=== PATIENT | male | born 1950 | race Caucasian/White ===

== ENCOUNTER 2019-06-02 14:13 | Emergency (ER) | payer OTHER ==
[2019-06-02 14:54] LABS: ABS Eosinophils 0.3 10^3/ul (0-0.6); ABS Lymphocytes 1.3 10^3/ul (1.0-4.8); ABS Monocytes 0.6 10^3/ul (0-0.8); ABS Neutrophils 6.5 10^3/ul (1.5-7.7); Eosinophil % 2.9 %; Hematocrit 44 % (42-52); Hemoglobin 14.8 g/dL (14.0-18.0); Lymphocyte % 15.3 %; Mean Corpuscular HGB Conc 34 g/dL (31-36); Mean Corpuscular Hemoglobin 31 pg (27-31); Mean Corpuscular Volume 90 fL (80-94); Mean Platelet Volume 8.9 fL (7.4-10.4); Nucleated Red Blood Cells % 0.5; Platelet Count 201 10^3/uL (150-450); Red Blood Count 4.82 10^6 /uL (4.18-5.48); Red Cell Distribution Width 13 % (10-15); White Blood Count 8.7 10^3/uL (3.5-10.8)
[2019-06-02 15:14] LABS: Troponin I 0.02 ng/mL (<0.03)
[2019-06-02 15:23] LABS: Albumin 3.8 g/dL (3.2-5.2); Calcium 8.9 mg/dL (8.6-10.3); Potassium 3.8 mmol/L (3.5-5.0); Total Bilirubin 0.4 mg/dL (0.2-1.0)
[2019-06-02 15:29] LABS: Albumin/Globulin Ratio 1.5 (1-3); BUN/Creatinine Ratio 18.5 (8-20); EGFR African American 98.4 (>60); EGFR Non-African American 81.3 (>60); Globulin 2.6 g/dL (2-4); Total Protein 6.4 g/dL (6.4-8.9)
--- NOTE | 2019-06-02 17:26 | ED ---
HPI Chest Pain - HPI Summary HPI Summary: This patient is a 68-year-old male from [facility] who presents to the ED with a feeling of chest pressure which she experienced 5 days ago which is now resolved. He had associated shortness of breath as well as fever during this time, both of which have resolved. 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 He states over the past 5 days, he has remained asymptomatic. History includes positive pertinent family history, recent 100% LAD occlusion with stent placement of August 2018, hypertension, hypercholesterolemia, diabetes, obesity. Patient denies any fevers, sweats, chills over the past 5 days and has feeling otherwise well. During his feeling of chest pressure, he states this was non-radiating, was not a pain (but instead a pressure) and denied any LAMB or visual changes associated. Denies any weight gain. Last ECHO done in December of this year. Last stress unknown. Patient takes multiple medications for his HTN, HCL, metform, plavix and aspirin. - History of Current Complaint Chief Complaint: EDChestPainROMI Time Seen by Provider: 06/02/19 14:17 Hx Obtained From: Patient Onset/Duration: Started Hours Ago Timing: Constant Initial Severity: Mild Current Severity: None Pain Intensity: 0 Pain Scale Used: 0-10 Numeric Chest Pain Location: Mid Sternal Chest Pain Radiates: No Character: Other: - pressure Aggravating Factor(s): Nothing Alleviating Factor(s): Nothing Associated Signs and Symptoms: Positive: Negative - Allergy/Home Medications Allergies/Adverse Reactions: Allergies Allergy/AdvReac Type Severity Reaction Status Date / Time No Known Allergies Allergy Verified 06/02/19 15:25 Home Medications: Home Medications Allopurinol TAB* [Zyloprim 300 MG TAB*] 300 mg PO DAILY 06/02/19 [History Confirmed 06/02/19] Aspirin EC TAB* [Ecotrin EC Low Dose 81 MG*] 81 mg PO DAILY 06/02/19 [History Confirmed 06/02/19] Atorvastatin* [Lipitor*] 40 mg PO QPM 06/02/19 [History Confirmed 06/02/19] Clopidogrel TAB* [Plavix TAB*] 75 mg PO DAILY 06/02/19 [History Confirmed ] Furosemide TAB* [Lasix TAB*] 20 mg PO DAILY 06/02/19 [History Confirmed 06/02/19 ] Losartan TAB* [Cozaar TAB*] 100 mg PO DAILY 06/02/19 [History Confirmed 06/02/19 ] Metoprolol Tartrate TAB* [Lopressor TAB*] 25 mg PO BID 06/02/19 [History Confirmed 06/02/19] Omeprazole CAP (NF) [Prilosec CAP* 20 MG] 20 mg PO DAILY 06/02/19 [History Confirmed 06/02/19] Tamsulosin CAP* [Flomax CAP*] 0.4 mg PO DAILY 06/02/19 [History Confirmed ] Triamcinolone NASAL SPRAY* [Nasacort AQ Nasal [place]*] 2 spray BOTH NARES DAILY 06/02/19 [History Confirmed 06/02/19] metFORMIN* [Glucophage 500 MG TAB *] 500 mg PO DAILY 06/02/19 [History Confirmed 06/02/19] PMH/Surg Hx/FS Hx/Imm Hx Previously Healthy: Yes - Immunization History Hx Pertussis Vaccination: No Immunizations Up to Date: Yes Infectious Disease History: No Infectious Disease History: Denies: Traveled Outside the [place] in Last 30 Days - Social History Occupation: Unemployed Lives: Dormitory/Roommates - [employer] Alcohol Use: None Hx Substance Use: No Substance Use Type: Reports: None Smoking Status (MU): Never Smoked Tobacco Review of Systems Negative: Fever, Chills, Fatigue, Skin Diaphoresis Positive: Chest Pain - 5 days ago - since resolved. Negative: Palpitations Negative: Shortness Of Breath, Cough Genitourinary: Negative Positive: no symptoms reported, see HPI Negative: Arthralgia, Myalgia Skin: Negative Neurological: Negative All Other Systems Reviewed And Are Negative: Yes Physical Exam Triage Information Reviewed: Yes Vital Signs On Initial Exam: Initial Vitals Pulse Resp Pulse Ox 64 24 96 06/02/19 14:20 06/02/19 14:20 06/02/19 14:20 Vital Signs Reviewed: Yes Appearance: Positive: Well-Appearing, Well-Nourished Skin: Positive: Warm, Skin Color Reflects Adequate Perfusion Head/Face: Positive: Normal Head/Face Inspection Eyes: Positive: EOMI, RADHA, Conjunctiva Clear Neck: Positive: Supple, No Lymphadenopathy Respiratory/Lung Sounds: Positive: Clear to Auscultation, Breath Sounds Present Cardiovascular: Positive: RRR, Pulses are Symmetrical in both Upper and Lower Extremities. Negative: Leg Edema Left, Leg Edema Right Musculoskeletal: Positive: Normal, Strength/ROM Intact Neurological: Positive: Sensory/Motor Intact, Alert, Oriented to Person Place, Time, Speech Normal Psychiatric: Positive: Normal, Affect/Mood Appropriate AVPU Assessment: Alert Procedures - Sedation Patient Received Moderate/Deep Sedation with Procedure: No Diagnostics - Vital Signs Vital Signs Temp Pulse Resp BP Pulse Ox 06/02/19 15:21 59 21 174/76 96 06/02/19 15:00 61 18 96 06/02/19 14:51 63 34 194/87 96 06/02/19 14:34 98.1 F 63 17 192/98 98 06/02/19 14:21 67 25 192/98 95 06/02/19 14:20 64 24 96 - Laboratory Lab Results: Lab Results 06/02/19 06/02/19 06/02/19 Range/Units 14:32 14:32 14:32 WBC 8.7 (3.5-10.8) 10^3/uL RBC 4.82 (4.18-5.48) 10^6 /uL Hgb 14.8 (14.0-18.0) g/dL Hct 44 (42-52) % MCV 90 (80-94) fL MCH 31 (27-31) pg MCHC 34 (31-36) g/dL RDW 13 (10-15) % Plt Count 201 (150-450) 10^3/uL MPV 8.9 (7.4-10.4) fL Neut % (Auto) 74.4 % Lymph % (Auto) 15.3 % [place] % (Auto) 7.2 % Eos % (Auto) 2.9 % Baso % (Auto) 0.2 % Absolute Neuts (auto) 6.5 (1.5-7.7) 10^3/ul Absolute Lymphs (auto) 1.3 (1.0-4.8) 10^3/ul Absolute Monos (auto) 0.6 (0-0.8) 10^3/ul Absolute Eos (auto) 0.3 (0-0.6) 10^3/ul Absolute Basos (auto) 0.0 (0-0.2) 10^3/ul Absolute Nucleated RBC 0.0 10^3/ul Nucleated RBC % 0.5 Sodium 141 (135-145) mmol/L Potassium 3.8 (3.5-5.0) mmol/L Chloride 106 (101-111) mmol/L Carbon Dioxide 27 (22-32) mmol/L Anion Gap 8 (2-11) mmol/L BUN 17 (6-24) mg/dL Creatinine 0.92 (0.67-1.17) mg/dL Est GFR ( Amer) 98.4 (>60) Est GFR (Non-Af Amer) 81.3 (>60) BUN/Creatinine Ratio 18.5 (8-20) Glucose 141 H (70-100) mg/dL Lactic Acid 1.7 (0.5-2.0) mmol/L Calcium 8.9 (8.6-10.3) mg/dL Total Bilirubin 0.40 (0.2-1.0) mg/dL AST 13 (13-39) U/L ALT 9 (7-52) U/L Alkaline Phosphatase 74 (34-104) U/L Troponin I 0.02 (<0.03) ng/mL Total Protein 6.4 (6.4-8.9) g/dL Albumin 3.8 (3.2-5.2) g/dL Globulin 2.6 (2-4) g/dL Albumin/Globulin Ratio 1.5 (1-3) Result Diagrams: 06/02/19 14:32 06/02/19 14:32 Lab Statement: Any lab studies that have been ordered have been reviewed, and results considered in the medical decision making process. Chest Pain Course/Dx - Course Course Of Treatment: During the patient is evaluated for chest pressure which she experienced 5 days ago. He associated this with shortness of breath as well as fever. He denies this currently. He denies history of COPD. He does have a history of LAD occlusion with a stent placed 9 months ago. Patient states has been asymptomatic 5 days. EKG obtained which shows left-sided heart strain without evidence of ST elevations. Vital signs stable except for an elevated BP. Patient states he has not taken his home medications today. Labs obtained which are WNL. Troponin 0.02. This was repeated and was stable at 0.02. Discussed with Dr. Quijano. As pt is asympatomatic, recent ECHO completed and 2 negative trops, pt is ok for discharge. recommended stress test and f/u with cardiology. - Chest Pain Differential Diagnosis/HQI/PQRI: Acute MA, ACS, Angina, Other: - PNA, CHF - Diagnoses Provider Diagnoses: Angina at rest Discharge ED - Sign-Out/Discharge Documenting (check all that apply): Patient Departure - Discharge Plan Condition: Stable Disposition: HOME Referrals: Sonu AYALA,Sherry Olmedo [Primary Care Provider] - Additional Instructions: I recommend a follow up stress test within the next week Please follow up with your city collector - Billing Disposition and Condition Condition: STABLE Disposition: Home
[2019-06-02 18:00] VITALS: BP 194/90
== END 2019-06-02 18:14 | disposition home or self-care (01) ==
LOC: ED 14:13
DX: I20.9 Angina pectoris, unspecified (principal); E11.9 Type 2 diabetes mellitus without complications; I10 Essential (primary) hypertension; E78.00 Pure hypercholesterolemia, unspecified; Z79.01 Long term (current) use of anticoagulants; Z79.82 Long term (current) use of aspirin; Z79.84 Long term (current) use of oral hypoglycemic drugs; Z79.899 Other long term (current) drug therapy
CPT/HCPCS: 36415; 71046; 80053; 83605; 84484; 85025; 93005; 99284

== ENCOUNTER 2019-07-14 06:03 | Observation (INO) | payer OTHER ==
[2019-07-14] MEDS ORDERED: NS 0.9% 1000 ML** 1,000 ML IV ONE (06:48)
[2019-07-14 07:33] LABS: ABS Basophils 0.1 10^3/ul (0-0.2); ABS Eosinophils 0.1 10^3/ul (0-0.6); ABS Lymphocytes 1.4 10^3/ul (1.0-4.8); ABS Monocytes 0.6 10^3/ul (0-0.8); ABS Neutrophils 10.1 10^3/ul (1.5-7.7); Eosinophil % 0.5 %; Hematocrit 50 % (42-52); Hemoglobin 17.3 g/dL (14.0-18.0); Lymphocyte % 11.2 %; Mean Corpuscular HGB Conc 34 g/dL (31-36); Mean Corpuscular Hemoglobin 31 pg (27-31); Mean Corpuscular Volume 90 fL (80-94); Mean Platelet Volume 8.7 fL (7.4-10.4); Platelet Count 260 10^3/uL (150-450); Red Blood Count 5.61 10^6 /uL (4.18-5.48); Red Cell Distribution Width 14 % (10-15); White Blood Count 12.2 10^3/uL (3.5-10.8)
[2019-07-14 07:43] LABS: Activated Partial Thrombo Time 32.7 seconds (26.0-38.0); INR 0.99 (0.82-1.09)
[2019-07-14 07:50] LABS: Albumin 4.1 g/dL (3.2-5.2); Albumin/Globulin Ratio 1.2 (1-3); BUN/Creatinine Ratio 22.7 (8-20); Calcium 9.4 mg/dL (8.6-10.3); EGFR African American 103.6 (>60); EGFR Non-African American 85.6 (>60); Globulin 3.3 g/dL (2-4); Magnesium 2.1 mg/dL (1.9-2.7); Potassium 4.2 mmol/L (3.5-5.0); Total Bilirubin 0.7 mg/dL (0.2-1.0); Total Protein 7.4 g/dL (6.4-8.9)
[2019-07-14 07:54] LABS: Troponin I 0.11 ng/mL (<0.03)
[2019-07-14] MEDS ORDERED: Aspirin 81 mg CHEW TAB* 81 MG TAB.CHEW PO ONE (08:03)
[2019-07-14 08:17] LABS: T4, Total 9.41 mcg/dL (6.09-12.23)
[2019-07-14 08:21] LABS: TSH (Thyroid Stimulating Horm) 1.29 mcIU/mL (0.34-5.60)
--- NOTE | 2019-07-14 08:53 | ED ---
HPI Chest Pain - HPI Summary HPI Summary: This patient is a 68-year-old male coming from [facility] with acute onset midsternal chest pain and pressure, extreme diaphoresis, nausea and SOB which started at approximately 1 AM. This chest pain was nonradiating. He denied any back pain, vomiting, visual changes or headache. Patient states he was able to call to go to the [facility]. An EKG was done which showed a new onset A. fib with RVR. Patient was given metoprolol 5 mg IV in route here to the ED. His symptoms resolved shortly thereafter and he converted to normal sinus rhythm with a rate of 89 on arrival to the ED. Patient is currently asymptomatic. Pertinent history includes CA August 2018 with one stent placement, 100% LAD occlusion. History of hypertension, hypercholesterolemia, obesity, diabetes. Patient denies any recent illness, cough, congestion. Denies any fevers. Patient is currently on metoprolol, Lipitor, metformin, Plavix and aspirin. Patient does state he has had these symptoms which have been very similar to this morning 3 times in the past year since his cath and stent placement. No current modifying factors. Denies smoking, alcohol use, drug use. Endorses family history of cardiac events. - History of Current Complaint Chief Complaint: EDChestPainROMI Time Seen by Provider: 07/14/19 06:34 Hx Obtained From: Patient Onset/Duration: Started Hours Ago Time of Onset: 01:00 Timing: Constant, Lasting Minutes Initial Severity: Severe Current Severity: None Pain Intensity: 2 Pain Scale Used: 0-10 Numeric Chest Pain Location: Discrete at:, Mid Sternal Chest Pain Radiates: No Character: Crushing, Dull/Aching Aggravating Factor(s): Nothing Alleviating Factor(s): Nothing Associated Signs and Symptoms: Positive: Shortness of Breath, Diaphoresis Related History: Similar Episode/Dx as: - previous CA in August 2018 - Risk Factors Pulmonary Embolism Risk Factors: Negative TAD Risk Factors: Negative AMI/ACS Risk Factors: Myocardial Infarction, Sedentary Lifestyle, Diabetes, Obesity, Family History, Hypertension, Dyslipidemia - Allergy/Home Medications Allergies/Adverse Reactions: Allergies Allergy/AdvReac Type Severity Reaction Status Date / Time No Known Allergies Allergy Verified 07/14/19 06:04 Home Medications: Home Medications Metoprolol Succinate XL TAB* [Toprol XL TAB*] 50 mg PO BID 07/14/19 [History Confirmed 07/14/19] amLODIPine TAB* [Norvasc 5 mg TAB*] 10 mg PO DAILY 07/14/19 [History Confirmed 07/14/19] cloNIDine TAB* [Catapres 0.1 MG TAB*] 0.2 mg PO BID 07/14/19 [History Confirmed 07/14/19] PMH/Surg Hx/FS Hx/Imm Hx Previously Healthy: No - Immunization History Hx Pertussis Vaccination: No Immunizations Up to Date: Yes Infectious Disease History: No Infectious Disease History: Denies: Traveled Outside the [place] in Last 30 Days - Social History Occupation: Unemployed Lives: Alone - [employer] Alcohol Use: None Hx Substance Use: No Substance Use Type: Reports: None Smoking Status (MU): Never Smoked Tobacco Review of Systems Positive: Skin Diaphoresis. Negative: Fever, Chills, Fatigue Positive: Chest Pain. Negative: Palpitations Positive: Shortness Of Breath. Negative: Cough Positive: Nausea Genitourinary: Negative Positive: no symptoms reported, see HPI Negative: Rash, Bruising Negative: Headache, Weakness, Paresthesia, Numbness, Syncope Negative: Anxious, Depressed All Other Systems Reviewed And Are Negative: Yes Physical Exam Triage Information Reviewed: Yes Vital Signs On Initial Exam: Initial Vitals Temp Pulse Resp BP Pulse Ox 98.1 F 87 20 168/97 96 07/14/19 06:04 07/14/19 06:04 07/14/19 06:04 07/14/19 06:04 07/14/19 06:04 Vital Signs Reviewed: Yes Appearance: Positive: Well-Appearing, Well-Nourished Skin: Positive: Warm, Skin Color Reflects Adequate Perfusion Head/Face: Positive: Normal Head/Face Inspection Eyes: Positive: EOMI, RADHA, Conjunctiva Clear Neck: Positive: Supple, Nontender, No Lymphadenopathy Respiratory/Lung Sounds: Positive: Clear to Auscultation, Breath Sounds Present Cardiovascular: Positive: RRR, Pulses are Symmetrical in both Upper and Lower Extremities Musculoskeletal: Positive: Normal, Strength/ROM Intact Neurological: Positive: Sensory/Motor Intact, Alert, Oriented to Person Place, Time, Speech Normal Psychiatric: Positive: Normal, Affect/Mood Appropriate AVPU Assessment: Alert Procedures - Sedation Patient Received Moderate/Deep Sedation with Procedure: No Diagnostics - Vital Signs Vital Signs Temp Pulse Resp BP Pulse Ox 07/14/19 07:43 89 20 164/97 95 02/11/20 07:13 88 22 173/98 97 07/14/19 07:00 90 20 95 07/14/19 06:57 97 07/14/19 06:10 89 95 07/14/19 06:04 98.1 F 87 20 168/97 96 - Laboratory Lab Results: Lab Results 07/14/19 07/14/19 07/14/19 Range/Units 07:24 07:24 07:24 WBC 12.2 H (3.5-10.8) 10^3/uL RBC 5.61 H (4.18-5.48) 10^6 /uL Hgb 17.3 (14.0-18.0) g/dL Hct 50 (42-52) % MCV 90 (80-94) fL MCH 31 (27-31) pg MCHC 34 (31-36) g/dL RDW 14 (10-15) % Plt Count 260 (150-450) 10^3/uL MPV 8.7 (7.4-10.4) fL Neut % (Auto) 82.7 % Lymph % (Auto) 11.2 % [place] % (Auto) 5.1 % Eos % (Auto) 0.5 % Baso % (Auto) 0.5 % Absolute Neuts (auto) 10.1 H (1.5-7.7) 10^3/ul Absolute Lymphs (auto) 1.4 (1.0-4.8) 10^3/ul Absolute Monos (auto) 0.6 (0-0.8) 10^3/ul Absolute Eos (auto) 0.1 (0-0.6) 10^3/ul Absolute Basos (auto) 0.1 (0-0.2) 10^3/ul Absolute Nucleated RBC 0.0 10^3/ul Nucleated RBC % 0.0 INR (Anticoag Therapy) (0.82-1.09) APTT (26.0-38.0) seconds Sodium 142 (135-145) mmol/L Potassium 4.2 (3.5-5.0) mmol/L Chloride 106 (101-111) mmol/L Carbon Dioxide 29 (22-32) mmol/L Anion Gap 7 (2-11) mmol/L BUN 20 (6-24) mg/dL Creatinine 0.88 (0.67-1.17) mg/dL Est GFR ( Amer) 103.6 (>60) Est GFR (Non-Af Amer) 85.6 (>60) BUN/Creatinine Ratio 22.7 H (8-20) Glucose 134 H (70-100) mg/dL Lactic Acid 1.5 (0.5-2.0) mmol/L Calcium 9.4 (8.6-10.3) mg/dL Magnesium 2.1 (1.9-2.7) mg/dL Total Bilirubin 0.70 (0.2-1.0) mg/dL AST 12 L (13-39) U/L ALT 11 (7-52) U/L Alkaline Phosphatase 86 (34-104) U/L Troponin I 0.11 H* (<0.03) ng/mL Total Protein 7.4 (6.4-8.9) g/dL Albumin 4.1 (3.2-5.2) g/dL Globulin 3.3 (2-4) g/dL Albumin/Globulin Ratio 1.2 (1-3) TSH 1.29 (0.34-5.60) mcIU/mL Thyroxine (T4) 9.41 (6.09-12.23) mcg/dL 07/14/19 Range/Units 07:24 WBC (3.5-10.8) 10^3/uL RBC (4.18-5.48) 10^6 /uL Hgb (14.0-18.0) g/dL Hct (42-52) % MCV (80-94) fL MCH (27-31) pg MCHC (31-36) g/dL RDW (10-15) % Plt Count (150-450) 10^3/uL MPV (7.4-10.4) fL Neut % (Auto) % Lymph % (Auto) % [place] % (Auto) % Eos % (Auto) % Baso % (Auto) % Absolute Neuts (auto) (1.5-7.7) 10^3/ul Absolute Lymphs (auto) (1.0-4.8) 10^3/ul Absolute Monos (auto) (0-0.8) 10^3/ul Absolute Eos (auto) (0-0.6) 10^3/ul Absolute Basos (auto) (0-0.2) 10^3/ul Absolute Nucleated RBC 10^3/ul Nucleated RBC % INR (Anticoag Therapy) 0.99 (0.82-1.09) APTT 32.7 (26.0-38.0) seconds Sodium (135-145) mmol/L Potassium (3.5-5.0) mmol/L Chloride (101-111) mmol/L Carbon Dioxide (22-32) mmol/L Anion Gap (2-11) mmol/L BUN (6-24) mg/dL Creatinine (0.67-1.17) mg/dL Est GFR ( Amer) (>60) Est GFR (Non-Af Amer) (>60) BUN/Creatinine Ratio (8-20) Glucose (70-100) mg/dL Lactic Acid (0.5-2.0) mmol/L Calcium (8.6-10.3) mg/dL Magnesium (1.9-2.7) mg/dL Total Bilirubin (0.2-1.0) mg/dL AST (13-39) U/L ALT (7-52) U/L Alkaline Phosphatase (34-104) U/L Troponin I (<0.03) ng/mL Total Protein (6.4-8.9) g/dL Albumin (3.2-5.2) g/dL Globulin (2-4) g/dL Albumin/Globulin Ratio (1-3) TSH (0.34-5.60) mcIU/mL Thyroxine (T4) (6.09-12.23) mcg/dL Result Diagrams: 07/14/19 07:24 07/14/19 13:20 Lab Statement: Any lab studies that have been ordered have been reviewed, and results considered in the medical decision making process. Chest Pain Course/Dx - Course Course Of Treatment: On arrival into the ED, the patient appears well. He is nondiaphoretic and nontoxic appearing. Vital signs are stable. An EKG was performed on arrival which shows a normal sinus rhythm with a rate of 89. He was given 5 mg IV metoprolol prior to arrival. On arrival, patient states he took aspirin, however this was not documented. Patient was subsequently given 324 chewable aspirin on arrival. Patient is currently asymptomatic. He is kept on a cardiopulmonary monitor. Labs are obtained which are fairly unremarkable except an elevated troponin of 0.11. Discussed with hospitalist Dr. Pompa who will admit for further evaluation. Serial troponins ordered. - Chest Pain Differential Diagnosis/HQI/PQRI: Acute CA, ACS, Angina, Chest Wall, Other: - a carlyle wih RVR - Diagnoses Provider Diagnoses: Elevated troponin, Chest pain - Provider Notifications Discussed Care Of Patient With: Anisa Pompa Instructed by Provider To: Admit As Inpatient Discharge ED - Sign-Out/Discharge Documenting (check all that apply): Patient Departure - Discharge Plan Condition: Fair Disposition: ADMITTED TO [facility] - Billing Disposition and Condition Condition: FAIR Disposition: Admitted to [facility] - Attestation Statements Provider Attestation: I was available for consult. This patient was seen by the LOC. The patient was not presented to, seen by, or examined by me. Rodriguez Martin MD
[2019-07-14] MEDS ORDERED: Metoprolol Tartrate TAB* 50 mg PO ONE (09:20)
[2019-07-14] MEDS ORDERED: metFORMIN* 500 MG TAB PO ONE (09:22)
[2019-07-14] MEDS ORDERED: Acetaminophen TAB* 325 MG PO PRN (10:45)
[2019-07-14 10:53] LABS: Troponin I 0.21 ng/mL (<0.03)
[2019-07-14] MEDS ORDERED: amLODIPine TAB* 5 MG PO SCH (11:00)
[2019-07-14] MEDS ORDERED: Enoxaparin(*) 40 MG/0.4 ML SYR SUBCUT SCH (11:00)
[2019-07-14] MEDS ORDERED: Perflutren Lipid Microsphere* 3 ML VIAL ONE (11:15)
[2019-07-14] MEDS ORDERED: Nitro 2% OINT* (Nitroglycerin) 1 INCH/PAK PAK TOPICAL ONE (11:37)
[2019-07-14] MEDS ORDERED: Heparin DRIP 25,000 UNITS(*) 25,000 UNITS/500 ML BAG IV SCH (11:45)
[2019-07-14] MEDS: Losartan TAB* 25 MG PO SCH (11:49)
[2019-07-14] MEDS ORDERED: hydrALAZINE IV* 20 MG/ML VIAL IV SLOW PU ONE (11:51)
--- NOTE | 2019-07-14 13:29 | HP ---
CC: Dr. Hodges; [facility] * HISTORY AND PHYSICAL: DATE OF ADMISSION: 07/14/19 PROVIDER: Yuliya Tran NP PRIMARY CARE PROVIDER: [facility] ATTENDING PHYSICIAN WHILE IN THE HOSPITAL: Dr. Anisa Covarrubias * (dictated by Yuliya Tran NP) CHIEF COMPLAINT: 1. Chest pain. 2. Shortness of breath. HISTORY OF PRESENT ILLNESS: Mr. Lobo is a 68-year-old male with a past medical history significant for hypertension, hyperlipidemia, history of CAD, and anterior wall TX in August of 2018 status post stent in the LAD, history of gout and diabetes, who presented to emergency room with complaints of chest pain and shortness of breath. The patient reports that approximately at 1 a.m. this morning, he got up to use the bathroom. He was diaphoretic, sweaty, short of breath and had chest pressure in the center of his chest. He denied any radiation of the chest pressure/pain due to these symptoms, he called for help. He was seen in the [facility] and he had an EKG done which showed rapid atrial fibrillation. He was given metoprolol 5 mg IV en route to the ER. His symptoms resolved shortly thereafter and converted to normal sinus rhythm at a rate of 89. On arrival, the patient was asymptomatic. The patient denies any recent illnesses, cough, congestion. Denies any fever, chills. Denies any hemoptysis, nausea, vomiting, diarrhea, abdominal pain. Denies any urinary frequency, urgency, or pain with urination, weakness, visual changes. Denies any dysphagia, arthralgias, myalgias, rashes, lesions, open sores, psychosis, or anxiety. While in the emergency room, the patient had routine lab work drawn. He was found to have a troponin initially of 0.11, repeat was 0.21. Upon my evaluation , the patient was complaining of mid sternal chest pressure rated at 3, continues to be nonradiating. Repeat EKG was completed which showed sinus rhythm at a rate of 63. He does have T wave inversions in V5, V6, and aVL. No ST elevations are noted or depressions. Due to these symptoms hospital medicine was asked to see and evaluate him for admission. PAST MEDICAL HISTORY: Significant for: 1. Hypertension. 2. Hyperlipidemia. 3. History of coronary artery disease, anterior wall TX in August of 2018 status post stenting in the LAD. 4. Gout. 5. Diabetes. PAST SURGICAL HISTORY: 1. Left knee surgery. 2. Cardiac stent placement in August of 2018. HOME MEDICATIONS: Include: 1. Prilosec 20 mg p.o. daily. 2. Metformin 500 mg p.o. daily. 3. Plavix 75 mg p.o. daily. 4. Flomax 0.4 mg p.o. daily. 5. Aspirin 81 mg p.o. daily. 6. Allopurinol 300 mg p.o. daily. 7. Metoprolol 50 mg p.o. b.i.d. 8. Lipitor 80 mg p.o. daily. 9. Nasacort 2 sprays to the nares. 10. Lasix 20 mg p.o. daily. 11. Losartan 100 mg p.o. daily. 12. Norvasc 10 mg p.o. daily. 13. Clonidine 0.2 mg p.o. b.i.d. ALLERGIES: No known drug allergies. FAMILY HISTORY: No reported history of coronary artery disease. Father with the history of diabetes. No reported history of cancer. SOCIAL HISTORY: The patient reports he quit smoking 25 years ago. Denies any alcohol use or illicit drug use. He currently resides at [facility]. Surrogate decision maker in the event he is unable to make his own decisions is his sister or [facility]. He is a full code. REVIEW OF SYSTEMS: A 14-point review of systems was completed. All pertinent positives were mentioned in the HPI. The patient did experience chest pain with associated shortness of breath, diaphoresis, and nausea resolved after he was given metoprolol 5 mg IV and heart rate returned to sinus rhythm. PHYSICAL EXAMINATION GENERAL: At this time, Mr. Lobo is a 68-year-old male. He is alert and oriented, resting on the stretcher in the emergency room. He is not in any acute distress. VITAL SIGNS: Blood pressure 181/101, heart rate 65, respirations are 21, O2 saturation 98%, temperature is 98.1. HEENT: Head is atraumatic, normocephalic. Eyes: EOMs are intact. Sclerae anicteric and not pale. Oral mucosa is moist. NECK: Supple. LUNGS: Clear to auscultation bilaterally. No wheezes, rales, or rhonchi. CARDIAC: S1, S2. Regular rate and rhythm. No rubs or gallops. ABDOMEN: Soft and nontender. Bowel sounds are present x4. EXTREMITIES: He is able to move all 4 extremities. There is no clubbing or cyanosis. NEUROLOGIC: He is awake, alert, oriented x3. Speech is clear. Thought process is intact. SKIN: Intact. DIAGNOSTIC STUDIES/LAB DATA: WBCs were 12.2, RBCs 5.61, hemoglobin 17.3, hematocrit was 50, platelet count was 260. INR was 0.99. APTT was 32.7. Sodium 142, potassium 4.2, chloride 106, carbon dioxide was 29, anion gap was 7 , BUN was 20, creatinine 0.88, glucose was 134, lactic acid was 1.5, calcium 9.4 , magnesium 2.1. Total bilirubin 0.70, ASTs were 12, ALTs were 11, alkaline phosphatase was 86. Troponin was 0.11, repeat was 0.21. TSH was 1.29 and T4 was 9.41. He had a chest x-ray, radiologist impression: No active cardiopulmonary disease. He had an electrocardiogram which showed sinus rhythm at a rate of 63, left anterior fascicular block. He has T wave inversions in V5, V6 and aVL. ASSESSMENT AND PLAN: Mr. Lobo is a 68-year-old male with a past medical history significant for coronary artery disease, hypertension, hyperlipidemia, gout, and diabetes, who presented to the emergency room with complaints of chest pain, shortness of breath. He will be admitted under observation for: 1. Chest pain. I suspect his chest pain could be related to his episode of atrial fibrillation with rapid ventricular response that has now resolved, but the patient continues to have chest pain. He does have known history of coronary artery disease and status post stent in August of 2018. At this time, the patient continues to complain of midsternal chest pressure, rated at 3. I will give him nitro paste 1 inch. I will also start him on a heparin drip as his troponins are positive at this time at 0.21. We will continue to trend his troponins, monitor him on telemetry. He will continue on metoprolol 50 mg b.i.d., amlodipine, Plavix, atorvastatin, and aspirin as well as a heparin drip. I have consulted Cardiology, Dr. Hodges, who will see the patient in consultation. The patient has a HEART score of 9 giving him a risk of major cardiac event of 50% to 65%. 2. Elevated troponin. I suspect this could be related to demand ischemia versus acute coronary syndrome. The patient will be placed on a heparin drip, monitored on telemetry and consultation has been placed to Cardiology, Dr. Hodges will see him. 3. Hypertension. The patient is hypertensive in the ER. He will receive his daily meds. I will also give him nitro paste and reevaluate his blood pressure after initiation of his medications. 4. Type 2 diabetes. The patient does have type 2 diabetes for which he takes metformin. I will hold his metformin and place him on Accu-Chek a.c. with lispro sliding scale. 5. Gout. He can continue on allopurinol as previously prescribed. 6. Atrial fibrillation with rapid ventricular response. The patient did have an episode of atrial fibrillation with rapid ventricular response. He was given metoprolol 5 mg IV prior to arrival and converted to sinus rhythm. He has had no further episodes of atrial fibrillation with rapid ventricular response. He is currently on a heparin drip for anticoagulation. CHADS-VASc score is 4 giving him a 6.7% risk of stroke, transient ischemic attack, or systemic embolism, giving him a moderate to high risk and should be anticoagulated. 7. FEN: He can have heart healthy, no caffeine diet. 8. Code status: He is a full code. 9. DVT prophylaxis: He will be on heparin drip. TIME SPENT: Time spent on this admission was 60 minutes, greater than half that time was spent at the bedside reviewing events leading thus far to his hospitalization, performing physical exam, and reviewing my plan of care. YULIYA SNOW, GEOGRAPHIC AREA INTELLIGENCE OFFICER [id number]/[facility] #: [id number] SUNITHA
[2019-07-14] MEDS: Heparin VIAL(*) 5000 UNITS/ML VIAL (FIVE THOUSAND) IV SCH ×2 (13:37→19:22)
[2019-07-14 13:50] LABS: EGFR African American 98.4 (>60); EGFR Non-African American 81.3 (>60)
[2019-07-14 13:57] LABS: Troponin I 0.3 ng/mL (<0.03)
[2019-07-14] MEDS: cloNIDine TAB* 0.1 MG PO SCH ×2 (14:12→20:18)
--- NOTE | 2019-07-14 16:51 | ECHO ---
*[facility]* [place] [address] Fax #: [phone] Transthoracic Echocardiogram Patient: Mynor Lobo [id number] : 1950 Study Date: 07/14/2019 Age: 68 Gender: M HR: 62 bpm Height: 68 in /172.7 cm BSA: 2.25 m^2 Weight: 249.5 lb /113.4 kg BMI: 38 kg/m^2 *Environmental Remediation Consultant: * Frieda Duke RDCS RN *Referring Physician: * Anisa VazquezReading Physician: * Brad Hodges MD Indications: Chest Pain, unspecified. History: Episode of A. Fib with RVR prior to admission. CAD. Prior ID 08/2018 with 1 stent placed. Risk factors: Hypertension. Diabetes mellitus. Obese. Dyslipidemia. Conclusions Summary: - Left ventricle: The cavity size is mildly reduced. Wall thickness is moderately to severely increased. Systolic function is normal. The estimated ejection fraction is 55-60%. Wall motion is normal; there are no regional wall motion abnormalities. - Right ventricle: Systolic function is normal. - Mitral valve: There is trace regurgitation. - Aortic valve: There is no evidence of stenosis. - Tricuspid valve: There is trace regurgitation. - Pericardium, extracardiac: There is no significant pericardial effusion. - Pulmonary arteries: Systolic pressure can not be accurately estimated. - Study data: No prior study is available for comparison. Study data: Transthoracic echocardiogram. Procedure: Transthoracic echocardiography was performed. Image quality was fair. The study was technically limited due to body habitus. Intravenous Definity 5 ml was administered to enhance imaging. Complete 2D, spectral Doppler, and color flow Doppler. Location: Emergency department. Patient status: Inpatient. Patient room number: ED 6. No prior study is available for comparison. Rhythm: Normal sinus rhythm. Findings Left ventricle: The cavity size is mildly reduced. Wall thickness is moderately to severely increased. Systolic function is normal. The estimated ejection fraction is 55-60%. Wall motion is normal; there are no regional wall motion abnormalities. There is no consistent Doppler evidence of clinically significant diastolic dysfunction. Right ventricle: The cavity size is normal. Systolic function is normal. Left atrium: The atrium is mildly dilated. Right atrium: The atrium is mildly dilated. Mitral valve: The leaflets are mildly thickened. There is no evidence of stenosis. There is trace regurgitation. Aortic valve: Not well visualized. The leaflets are mildly thickened. There is no evidence of stenosis. There is no significant regurgitation. Tricuspid valve: Not well visualized. There is trace regurgitation. Pulmonic valve: The valve is structurally normal. There is no evidence of stenosis. There is no significant regurgitation. Aorta: Aortic root: The aortic root is not dilated. Ascending aorta: The ascending aorta is not dilated. Aortic arch: The aortic arch is not visualized. Pericardium: A prominent pericardial fat pad is present. There is no significant pericardial effusion. Pulmonary arteries: The main pulmonary artery is normal-sized. Systolic pressure can not be accurately estimated. Systemic veins: Inferior vena cava: Not well visualized. Measurements Left ventricle Value Ref Right atrium Value Ref ALEX, LAX 5.0 cm 4.2 - ML dim, ES, A4C (H) 4.5 cm 2.6 - 4.4 5.8 SI dim, ES, A4C (H) 5.6 cm 3.4 - 5.3 ESD, LAX 3.5 cm 2.5 - 4.0 Aortic valve Value Ref FS, LAX 30 % 25 - 43 Morris diam, ED 2.0 cm --------- PW, ED (H) 1.6 cm 0.6 - Morris diam/bsa, ED 0.9 cm/m^2 --------- 1.0 Peak v, S 1.24 m/sec --------- E', lat morris, TDI (L) 6.5 cm/sec >=10.0 VTI, S 27.9 cm -- ------- E/e', lat morris, TDI 8 -------- Mean grad, S 4.0 mm Hg ----- ---- E', med morris, TDI (L) 5.5 cm/sec >=7.0 Peak grad, S 6.0 mm Hg -- ------- E/e', med morris, TDI 10 -------- LVOT/AV, VTI ratio 0.7 ----- ---- E', avg, TDI 6.0 cm/sec -------- E/e', avg, TDI 9 <=14 Mitral valve Value Re f Peak E 0.55 m/sec --------- LVOT Value Ref Peak A 0.82 m/sec --------- Peak nyasia, S 1 m/sec -------- Decel time 292 ms --------- VTI, S 19.5 cm -------- Peak E/A ratio 0.7 --------- Mean grad, S 2 mm Hg -------- Pulmonic valve Value Ref Ventricular septum Value Ref Peak v, S 1.1 m/sec --------- IVS, ED (H) 1.7 cm 0.6 - 1.0 Aortic root Value Ref Root diam 3.4 cm <4.3 Right ventricle Value Ref ALEX, LAX 2.9 cm -------- Ascending aorta Value Ref ALEX minor ax, A4C 2.9 cm 1.9 - AAo AP diam, S 3.4 cm --------- mid 3.5 Left atrium Value Ref ML dim, A4C 4.5 cm -------- SI dim, A4C 6.0 cm -------- Vol/bsa, ES, 1-p 34 ml/m^2 12 - 37 A4C Vol/bsa, ES, A/L (H) 40 ml/m^2 16 - 34 Legend: (L) and (H) ulises values outside specified reference range. Prepared and electronically signed by Brad Hodges MD 07/14/2019 16:51
[2019-07-14] MEDS: Atorvastatin* 80 MG TAB PO SCH (17:53)
--- NOTE | 2019-07-14 20:13 | CONS ---
CARDIOLOGY CONSULTATION: DATE OF CONSULT: 07/14/19 INDICATION FOR CONSULTATION: Chest pain, coronary artery disease. HISTORY OF PRESENT ILLNESS: The patient is a 68-year-old gentleman with a history of coronary artery disease, history of an anterior wall myocardial infarction in August 2018, who was brought to the emergency room because of chest pain. The patient states that approximately 1 o'clock this morning, he started experiencing chest pain. He describes it as a fullness in his chest. He also described diaphoresis and sweating, shortness of breath, chest pressure. The patient was seen at [facility], and EKG done there showed he was in atrial fibrillation with rapid ventricular response. The patient was transported to [facility]. On arrival to [facility], he was in normal sinus rhythm. His EKG showed normal sinus rhythm, left ventricular hypertrophy. No ST-T wave abnormalities. In the emergency room, the patient received IV medications for his blood pressure and pain control. His pain subsequently went away. The patient's troponin level peaked at 0.3. The patient was in the emergency room at [facility] in June. At that time, he ruled out for a myocardial infarction. There was some documentation that he was to be set up for a stress test. I do not know if that stress test ever occurred. The patient is unaware whether he had a stress test or not. The patient was pain free when I interviewed the patient. PAST MEDICAL HISTORY: Hypertension, hyperlipidemia, coronary artery disease, gout, diabetes. Coronary artery disease, the patient had an anterior wall myocardial infarction on 08/08/18, he was treated at [facility]. At that time, he had a 3.5 mm x 38 mm stent to his LAD. PAST SURGICAL HISTORY: Knee surgery, cataract surgery. OUTPATIENT MEDICATIONS: 1. Prilosec 20 mg a day. 2. Metformin 500 mg a day. 3. Plavix 75 mg a day. 4. Flomax 0.4 mg a day. 5. Aspirin 81 mg a day. 6. Allopurinol 300 mg a day. 7. Metoprolol 50 mg b.i.d. 8. Lipitor 80 mg a day. 9. Lasix 20 mg a day. 10. Losartan 100 mg a day. 11. Norvasc 10 mg a day. 12. Clonidine 0.2 mg b.i.d. ALLERGIES: No known drug allergies. FAMILY HISTORY: Father had a history of diabetes. No history of cancer. SOCIAL HISTORY: He is currently incarcerated at [facility]. He was a previous smoker. He says he "quit 25 years ago." He denies alcohol or illicit drug use. REVIEW OF SYSTEMS: Negative for fevers and chills. Negative for changes in bowel or bladder habits. Negative for change in weight. Other 12-point review is unremarkable. PHYSICAL EXAM: Height 5 feet 8 inches, weight 271 pounds, temperature 97.8, heart rate 69, blood pressure 195/96, respiratory rate is 22, oxygen saturation 99% on 2 L. Sclerae anicteric. Oropharynx is pink without erythema. Carotids are 2+ without bruits. JVD is normal. Thyroid is normal. Cardiac Exam: S1, S2 without any murmurs, rubs, or gallops. Lungs are clear to auscultation. There is no dullness to percussion. Abdomen is soft, nontender, nondistended with normoactive bowel sounds. Extremities show no edema. He has 2+ pulses throughout. The patient is awake, alert, and oriented. He moves all 4 extremities equally. DIAGNOSTIC STUDIES/LAB DATA: Chemistries within normal limits. BUN 20, creatinine 0.8. AST and ALT are normal. Again, peak troponin 0.3. TSH is normal at 1.29. CBC within normal limits. IMPRESSION: This is a 68-year-old gentleman with a history of coronary artery disease, who came to the hospital because of chest pain. His initial EKG did show atrial fibrillation with rapid ventricular response, but by the time he came to the emergency room, he was in normal sinus rhythm. The patient's troponin levels are minimally elevated. Given his history of coronary artery disease and positive troponins, there always is this concern about ischemic event. It is more likely that his ischemic event was due to his rapid heart rate and atrial fibrillation than a true ruptured plaque. Reportedly, the patient had a stress test within the last month, but we do not have confirmation for that. It is my recommendation the patient undergo a stress test before leaving the hospital or get documentation of his stress test within the last month. The patient should be discharged on anticoagulation for his atrial fibrillation documented at [facility]. His other medications will remain the same. The patient will be watched for blood pressure response to his current medications. [id number]/[facility] #: [id number] SUNITHA
[2019-07-14] MEDS: Metoprolol Succinate XL TAB* 50 MG PO SCH (20:14)
[2019-07-14 21:21] LABS: Troponin I 0.22 ng/mL (<0.03)
[2019-07-15 00:22] LABS: Troponin I 0.33 ng/mL (<0.03)
[2019-07-15] MEDS: Heparin VIAL(*) 5000 UNITS/ML VIAL (FIVE THOUSAND) IV SCH (01:48)
--- NOTE | 2019-07-15 07:44 | PN ---
Subjective Date of Service: 07/15/19 Interval History: HD 2 on 07/15 68 M with HTN, HLD, CAD(s/p stent), DM and GOut presented withacute onset of chest pain associated with shortness of breath and diaphoresis. Found to have A- fib with RVR( broke with metoprolol) and elevated troponin. No acute overnight events. vitals stable Patient presented for chest pain and was found to have Afib with RVR. Normal simus rhythm now. Has elevated troponin-downtrending- likey demand ischemia Patient denies chest pain, nausea and shortness of breath at present. Former smoker; ocassionally drinks alcohol. waiting second phase of stress test- will happen tomorrow Objective Active Medications: Acetaminophen (Tylenol Tab*) 650 mg PO Q6H PRN PRN Reason: MILD PAIN or TEMP > 100.4 Last Admin: 07/14/19 20:18 Dose: 650 mg Allopurinol (Zyloprim Tab*) 300 mg PO DAILY [facility] Amlodipine Besylate (Norvasc Tab*) 10 mg PO DAILY [facility] Aspirin (Aspirin Ec Tab*) 81 mg PO DAILY [facility] Atorvastatin Calcium (Lipitor*) 80 mg PO QPM [facility] Last Admin: 07/14/19 17:53 Dose: 80 mg Clonidine HCl (Catapres Tab*) 0.2 mg PO BID [facility] Last Admin: 07/14/19 20:18 Dose: 0.2 mg Clopidogrel Bisulfate (Plavix Tab*) 75 mg PO DAILY [facility] Heparin Sodium (Porcine) (Heparin Vial(*)) 0 units IV .PER PROTOCOL [facility] Last Admin: 07/15/19 01:48 Dose: 2,000 units Hydrochlorothiazide (Hydrodiuril Tab*) 25 mg PO DAILY [facility] Heparin Sodium/Dextrose (Heparin Drip 25,000 Units(*)) 25,000 units in 500 mls @ 0 mls/hr IV PER RATE [facility]; Protocol Last Admin: 07/14/19 13:37 Dose: 20 mls/hr Losartan Potassium (Cozaar Tab*) 100 mg PO DAILY [facility] Last Admin: 07/14/19 11:49 Dose: 100 mg Metoprolol Succinate (Toprol Xl Tab*) 50 mg PO BID [facility] Last Admin: 07/14/19 20:14 Dose: 50 mg Pantoprazole Sodium (Protonix Tab*) 40 mg PO DAILY [facility] Tamsulosin HCl (Flomax Cap*) 0.4 mg PO DAILY [facility] Vital Signs - 8 hr 07/15/19 07/15/19 03:15 07:15 Temperature 98.8 F 97.3 F Pulse Rate 60 64 Respiratory 20 20 Rate Blood Pressure 126/60 155/91 (mmHg) O2 Sat by Pulse 95 97 Oximetry Oxygen Devices in Use Now: None Exam: Patient is lying comfortably in bed with no distress. HEENT: Normocephalic and atraumatic Lungs: clear with no added sounds Heart: S1/S2 heard with no murmur Abdomen: soft, and nontender. Normal BS heard Neuro: alert, oriented and coperative Result Diagrams: 07/15/19 07:56 07/16/19 05:44 Additional Lab and Data: Lab Results 07/14/19 07/14/19 07/14/19 Range/Units 07:24 07:24 07:24 WBC 12.2 H (3.5-10.8) 10^3/uL RBC 5.61 H (4.18-5.48) 10^6 /uL Hgb 17.3 (14.0-18.0) g/dL Hct 50 (42-52) % MCV 90 (80-94) fL MCH 31 (27-31) pg MCHC 34 (31-36) g/dL RDW 14 (10-15) % Plt Count 260 (150-450) 10^3/uL MPV 8.7 (7.4-10.4) fL Neut % (Auto) 82.7 % Lymph % (Auto) 11.2 % [place] % (Auto) 5.1 % Eos % (Auto) 0.5 % Baso % (Auto) 0.5 % Absolute Neuts (auto) 10.1 H (1.5-7.7) 10^3/ul Absolute Lymphs (auto) 1.4 (1.0-4.8) 10^3/ul Absolute Monos (auto) 0.6 (0-0.8) 10^3/ul Absolute Eos (auto) 0.1 (0-0.6) 10^3/ul Absolute Basos (auto) 0.1 (0-0.2) 10^3/ul Absolute Nucleated RBC 0.0 10^3/ul Nucleated RBC % 0.0 INR (Anticoag Therapy) (0.82-1.09) APTT (26.0-38.0) seconds Sodium 142 (135-145) mmol/L Potassium 4.2 (3.5-5.0) mmol/L Chloride 106 (101-111) mmol/L Carbon Dioxide 29 (22-32) mmol/L Anion Gap 7 (2-11) mmol/L BUN 20 (6-24) mg/dL Creatinine 0.88 (0.67-1.17) mg/dL Est GFR ( Amer) 103.6 (>60) Est GFR (Non-Af Amer) 85.6 (>60) BUN/Creatinine Ratio 22.7 H (8-20) Glucose 134 H (70-100) mg/dL Lactic Acid 1.5 (0.5-2.0) mmol/L Calcium 9.4 (8.6-10.3) mg/dL Magnesium 2.1 (1.9-2.7) mg/dL Total Bilirubin 0.70 (0.2-1.0) mg/dL AST 12 L (13-39) U/L ALT 11 (7-52) U/L Alkaline Phosphatase 86 (34-104) U/L Troponin I 0.11 H* (<0.03) ng/mL Total Protein 7.4 (6.4-8.9) g/dL Albumin 4.1 (3.2-5.2) g/dL Globulin 3.3 (2-4) g/dL Albumin/Globulin Ratio 1.2 (1-3) TSH 1.29 (0.34-5.60) mcIU/mL Thyroxine (T4) 9.41 (6.09-12.23) mcg/dL 07/14/19 Range/Units 07:24 WBC (3.5-10.8) 10^3/uL RBC (4.18-5.48) 10^6 /uL Hgb (14.0-18.0) g/dL Hct (42-52) % MCV (80-94) fL MCH (27-31) pg MCHC (31-36) g/dL RDW (10-15) % Plt Count (150-450) 10^3/uL MPV (7.4-10.4) fL Neut % (Auto) % Lymph % (Auto) % [place] % (Auto) % Eos % (Auto) % Baso % (Auto) % Absolute Neuts (auto) (1.5-7.7) 10^3/ul Absolute Lymphs (auto) (1.0-4.8) 10^3/ul Absolute Monos (auto) (0-0.8) 10^3/ul Absolute Eos (auto) (0-0.6) 10^3/ul Absolute Basos (auto) (0-0.2) 10^3/ul Absolute Nucleated RBC 10^3/ul Nucleated RBC % INR (Anticoag Therapy) 0.99 (0.82-1.09) APTT 32.7 (26.0-38.0) seconds Sodium (135-145) mmol/L Potassium (3.5-5.0) mmol/L Chloride (101-111) mmol/L Carbon Dioxide (22-32) mmol/L Anion Gap (2-11) mmol/L BUN (6-24) mg/dL Creatinine (0.67-1.17) mg/dL Est GFR ( Amer) (>60) Est GFR (Non-Af Amer) (>60) BUN/Creatinine Ratio (8-20) Glucose (70-100) mg/dL Lactic Acid (0.5-2.0) mmol/L Calcium (8.6-10.3) mg/dL Magnesium (1.9-2.7) mg/dL Total Bilirubin (0.2-1.0) mg/dL AST (13-39) U/L ALT (7-52) U/L Alkaline Phosphatase (34-104) U/L Troponin I (<0.03) ng/mL Total Protein (6.4-8.9) g/dL Albumin (3.2-5.2) g/dL Globulin (2-4) g/dL Albumin/Globulin Ratio (1-3) TSH (0.34-5.60) mcIU/mL Thyroxine (T4) (6.09-12.23) mcg/dL Assess/Plan/Problems-Billing Assessment: 68 M with HTN, HLD, CAD(s/p stent), DM and GOut presented withacute onset of chest pain associated with shortness of breath and diaphoresis. Found to have A- fib with RVR( broke with metoprolol) and elevated troponin. On anti-coagulation - Patient Problems (1) Chest pain Current Visit: Yes Status: Acute Code(s): R07.9 - CHEST PAIN, UNSPECIFIED SNOMED Code(s): 84248187 Comment: -secondary to atrial fibrillation with RVR -controlled with metoprolol -Asymptomatic at present. Chest pain resolved after control of a-fib -EKg shows non-specific changes; now in sinus rhythm -trops elevated to 0.33; downtrended; likely demand from A-fib -will rule out ischemia- stress test for rsik stratification. -pending resting stress test -on aspirin, plvix, metoprolol, amlodipine and statin -appreciate cardio input (2) Atrial fibrillation Current Visit: Yes Status: Acute Code(s): I48.91 - UNSPECIFIED ATRIAL FIBRILLATION SNOMED Code(s): 83497267 Comment: -A-fib with RVR on presentation -broke with IV metoprolol by EMS -now normal sinus rhythm -continue metoprolol succinate -CHADs-VASC score is 4 which puts him as a high risk for thromboembolic risk -received lovenox therapeutic -eliquis 5 mg BID from tomorrow (3) Elevated troponin Current Visit: Yes Status: Acute Code(s): R79.89 - OTHER SPECIFIED ABNORMAL FINDINGS OF BLOOD CHEMISTRY SNOMED Code(s): 656976321 Comment: -likely demand -downtrended (4) CAD (coronary artery disease) Current Visit: Yes Status: Acute Code(s): I25.10 - ATHSCL HEART DISEASE OF [place] CORONARY ARTERY W/O ANG PCTRS SNOMED Code(s): 22847831 Comment: -s/p stent palcement in August 2018 -medically optimized (5) Diabetes Current Visit: Yes Status: Acute Code(s): E11.9 - TYPE 2 DIABETES MELLITUS WITHOUT COMPLICATIONS SNOMED Code(s): 50725640 Comment: -continue insulin lispro with ss -restart metformin at discharge (6) Hypertension Current Visit: Yes Status: Acute Code(s): I10 - ESSENTIAL (PRIMARY) HYPERTENSION SNOMED Code(s): 26027712 Comment: -BP controlled -continue home meds (7) Gout Current Visit: Yes Status: Acute Code(s): M10.9 - GOUT, UNSPECIFIED SNOMED Code(s): 63887889 Comment: -Continue allopurinol (8) DVT prophylaxis Current Visit: Yes Status: Acute Code(s): Z29.9 - ENCOUNTER FOR PROPHYLACTIC MEASURES, UNSPECIFIED SNOMED Code(s): 085845730 Comment: -therapeutic AC (9) Full code status Current Visit: Yes Status: Acute Code(s): Z78.9 - OTHER SPECIFIED HEALTH STATUS SNOMED Code(s): 712682903 Status and Disposition: Observation [facility]ickson tomorrow to [facility] [place] Attending: Kait Mcleod Attestation Documenting Resident: Jamila Morel Supervising Physician: Kait Mcleod Attending/Supervising Physician Comment: Agree with resident note and findings Attestation: This service has been performed in part by a resident under the direction of a teaching physician.I, Kait Mcleod, performed the service, or was physically present during the critical, or otto portions of the service, furnished by the resident. I participated in the management of the patient.
[2019-07-15 08:25] LABS: ABS Eosinophils 0.2 10^3/ul (0-0.6); ABS Lymphocytes 1.3 10^3/ul (1.0-4.8); ABS Monocytes 0.6 10^3/ul (0-0.8); ABS Neutrophils 6.2 10^3/ul (1.5-7.7); Eosinophil % 2.4 %; Hematocrit 44 % (42-52); Hemoglobin 14.9 g/dL (14.0-18.0); Lymphocyte % 15.7 %; Mean Corpuscular HGB Conc 34 g/dL (31-36); Mean Corpuscular Hemoglobin 31 pg (27-31); Mean Corpuscular Volume 90 fL (80-94); Mean Platelet Volume 8.4 fL (7.4-10.4); Platelet Count 201 10^3/uL (150-450); Red Blood Count 4.85 10^6 /uL (4.18-5.48); Red Cell Distribution Width 13 % (10-15); White Blood Count 8.3 10^3/uL (3.5-10.8)
[2019-07-15 08:47] LABS: BUN/Creatinine Ratio 27.4 (8-20); Calcium 8.8 mg/dL (8.6-10.3); EGFR African American 94.8 (>60); EGFR Non-African American 78.4 (>60); HDL Cholesterol 45.9 mg/dL; Potassium 4.3 mmol/L (3.5-5.0)
[2019-07-15] MEDS: cloNIDine TAB* 0.1 MG PO SCH ×2 (09:46→21:12)
[2019-07-15] MEDS: Clopidogrel TAB* 75 MG PO SCH (09:46)
[2019-07-15] MEDS: amLODIPine TAB* 5 MG PO SCH (09:46)
[2019-07-15] MEDS: Aspirin EC TAB* 81 MG TAB.EC PO SCH (09:46)
[2019-07-15] MEDS: Allopurinol TAB* 300 MG PO SCH (09:46)
[2019-07-15] MEDS: Pantoprazole TAB * 40 MG TAB PO SCH (09:47)
[2019-07-15] MEDS: Tamsulosin CAP* 0.4 MG PO SCH (09:47)
[2019-07-15] MEDS: Hydrochlorothiazide TAB* 25 MG PO SCH (09:47)
[2019-07-15] MEDS ORDERED: Enoxaparin(*) 150 MG/ML 1 ML SYRINGE SUBCUT SCH (10:00)
[2019-07-15] MEDS ORDERED: Regadenoson* 0.4 MG/5 ML SYRINGE ONE (10:53)
[2019-07-15] MEDS: Losartan TAB* 25 MG PO SCH (12:28)
--- NOTE | 2019-07-15 13:51 | DS ---
DATE OF ADMISSION: 07/14/2019. DATE OF DISCHARGE: 07/16/2019. DISPOSITION AT THE TIME OF DISCHARGE: Stable to be discharged back to correctional facility where the patient is currently domiciled. PRIMARY DIAGNOSIS: Chest pain secondary to atrial fibrillation with rapid ventricular response. SECONDARY DIAGNOSES: CAD, status post stent in 2019, noninsulin dependent diabetes, gout, hypertension, hyperlipidemia, BPH, GERD. MEDICATIONS AT THE TIME OF DISCHARGE: 1. Metoprolol Succinate 100 mg p.o. daily. 2. Furosemide 20 mg p.o. daily. 3. Metformin 500 mg p.o. daily. 4. Triamcinolone nasal spray two sprays both nares. 5. Allopurinol 300 mg p.o. daily. 6. Amlodipine 10 mg p.o. daily. 7. Aspirin 81 mg p.o. daily. 8. Atorvastatin 80 mg p.o. q.p.m. 9. Clonidine 0.2 mg p.o. b.i.d. 10. Clopidogrel 75 mg p.o. daily. 11. Losartan 100 mg p.o. daily. 12. Omeprazole 20 mg p.o. daily. 13. Tamsulosin 0.4 mg p.o. daily. 14. Eliquis 5 mg p.o. b.i.d. MEDICATIONS CHANGES DURING THIS HOSPITALIZATION: Changing of Metoprolol from 50 b.i.d. to 100 mg p.o. daily and Eliquis was added for anticoagulation risk. HISTORY OF PRESENT ILLNESS/HOSPITAL COURSE: This 68-year-old male with the above past medical history who presented from a correctional facility with acute onset of chest pain and shortness of breath and in the [facility] within his correctional facility he was found to have atrial fibrillation with a rapid ventricular response to 120. He was given Metoprolol by EMS. On arrival to the emergency room, the patient was in sinus rhythm with elevated blood pressure , satting well on two liters of nasal cannula with a respiratory rate of 20 and afebrile. Troponin was initially elevated at 0.3. Chest x-ray was done which was unremarkable. EKG was done which showed normal sinus rhythm, although documented rhythm strip showed A-fib with RVR. Echocardiogram was done that showed no regional wall motion abnormalities and an ejection fraction of 55 to 60 percent. The patient was admitted for observation. Of note, the patient reports that he has had intermittent paroxysmal atrial fibrillation with two other episodes in the past, although they were so infrequent, he did not start anticoagulation. The patient was admitted for observation for elevated troponin and monitoring for chest pain. HOSPITAL COURSE BY PROBLEM: 1. Atrial fibrillation, rapid ventricular response documented by outside facility and broke with Metoprolol. The patient's Metoprolol was increased from 50 to 100 mg with excellent rate control. The patient's CHADS- VASc score was greater than 4 and should be anticoagulated and has no contraindications. He was placed on a DOAC. He was placed on a Heparin drip early in his hospitalization and was transitioned to DOAC with dosing as per above. 2. Elevated troponin: The patient had no chest pain during this hospitalization. 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 He is already optimized on aspirin, Plavix, and statin from his prior CAD. 3. CAD: His home medications were continued. 4. Hypertension: His blood pressure was well-controlled. 5. Diabetes: Home medications were continued. 6. GERD: Home medications were continued. 7. BPH: Home medications were continued. On the day of discharge, the patient is tolerating diet and is voiding freely. He is chest pain free. Vital signs were stable. Stress test low risk as per below. He is safe to return to his prior correctional facility with change in Metoprolol as per above. LABORATORY DATA/DIAGNOSTIC STUDIES: Labs on the day of discharge: White blood cell count 8.3, hemoglobin 14.9, hematocrit 44, platelets 201; sodium 140, potassium 4.3, chloride 103, carbon dioxide 29, anion gap 6, BUN 26, creatinine 0.9, glucose 135, troponin at 0.2 from a peak of 0.33 on admission. Imaging includes chest x-ray done 07/14/2019 that showed no acute intrathoracic pathology. EKG shows normal sinus rhythm with no signs of acute ischemia. Transthoracic echocardiogram done on 07/14/2019 shows an ejection fraction 55 to 60 percent, no evidence of diastolic dysfunction, no regional wall motion abnormalities, no significant valvular pathology. CONSULTANTS DURING THIS HOSPITALIZATION: Cardiology. Myoview stress test was done on 07/15/2019 with formal read pending at this time, although read as low risk per report of jukebox routeman. ITEMS TO FOLLOW-UP ON STATUS POST DISCHARGE: Rate control in the setting of paroxysmal atrial fibrillation. The patient was increased to 100 mg of Succinate Metoprolol p.o. daily. This can be changed by outside providers as needed. May need the benefit of b.i.d. dosing, although would recommend Toprol instead of Succinate in this case. Furthermore, the patient's CHADS-VASc score is greater than 4 indicating risk of stroke is greater than risk of bleed and we would recommend initiating anticoagulation and can be safer done with DOAC as he has no evidence of valvular atrial fibrillation. This can be done with Eliquis, although Xarelto or any other direct oral anticoagulant is reasonable. TIME SPENT: Forty minutes were spent on the planning of this discharge, over half of that was spent directly at the bedside of the patient providing direct patient care. Plan of care was discussed with the patient. He has no questions and this discharge summary will be sent with the patient upon discharge back to his correctional facility. Please do not hesitate to contact me if there are any questions. My cell phone is [phone]. [id number]/[facility] #: [id number] SUNITHA
[2019-07-15] MEDS: Metoprolol Succinate XL TAB* 50 MG PO SCH (14:29)
[2019-07-15] MEDS: Atorvastatin* 80 MG TAB PO SCH (17:45)
--- NOTE | 2019-07-15 18:09 | PN ---
Subjective Date of Service: 07/15/19 - CC: diaphorisis, SOB, CP Interval History: The patient has not had reproduction of waking up very diaphoretic with SOB, chest discomfort. ROS: Recent 20# weight loss due to anorexia. Denies orthopnea. States leg edema recently. Medications Active Medications: Acetaminophen (Tylenol Tab*) 650 mg PO Q6H PRN PRN Reason: MILD PAIN or TEMP > 100.4 Last Admin: 07/14/19 20:18 Dose: 650 mg Allopurinol (Zyloprim Tab*) 300 mg PO DAILY [facility] Last Admin: 07/15/19 09:46 Dose: 300 mg Amlodipine Besylate (Norvasc Tab*) 10 mg PO DAILY [facility] Last Admin: 07/15/19 09:46 Dose: 10 mg Apixaban (Eliquis*) 5 mg PO BID [facility] Aspirin (Aspirin Ec Tab*) 81 mg PO DAILY [facility] Last Admin: 07/15/19 09:46 Dose: 81 mg Atorvastatin Calcium (Lipitor*) 80 mg PO QPM [facility] Last Admin: 07/15/19 17:45 Dose: 80 mg Clonidine HCl (Catapres Tab*) 0.2 mg PO BID [facility] Last Admin: 07/15/19 09:46 Dose: 0.2 mg Clopidogrel Bisulfate (Plavix Tab*) 75 mg PO DAILY [facility] Last Admin: 07/15/19 09:46 Dose: 75 mg Hydrochlorothiazide (Hydrodiuril Tab*) 25 mg PO DAILY [facility] Last Admin: 07/15/19 09:47 Dose: 25 mg Losartan Potassium (Cozaar Tab*) 100 mg PO DAILY [facility] Last Admin: 07/15/19 12:28 Dose: 100 mg Metoprolol Succinate (Toprol Xl Tab*) 100 mg PO DAILY [facility] Pantoprazole Sodium (Protonix Tab*) 40 mg PO DAILY [facility] Last Admin: 07/15/19 09:47 Dose: 40 mg Tamsulosin HCl (Flomax Cap*) 0.4 mg PO DAILY [facility] Last Admin: 07/15/19 09:47 Dose: 0.4 mg Objective Vital Signs: Temp Pulse Resp BP Pulse Ox 97.3 F 64 20 155/91 97 07/15/19 07:15 07/15/19 07:15 07/15/19 07:15 07/15/19 07:15 07/15/19 07:15 Oxygen Devices in Use Now: None Appearance: Stocky and markedly obese older gentleman lying 20 degrees, gaurds are in the room. Eyes: No Scleral Icterus, PERRLA Ears/Nose/Mouth/Throat: Clear Oropharnyx, Mucous Membranes Moist Neck: NL Appearance and Movements; NL JVP - thick neck. Respiratory: Symmetrical Chest Expansion and Respiratory Effort, Clear to Auscultation - distant from obesity. Cardiovascular: NL Sounds; No Murmurs; No JVD - distant c/w obesity., RRR Abdominal: - - normal bowel sounds, rotund and firm from obesity. Extremities: No Clubbing, Cyanosis - trace edema, 1-2 + edema. Skin: No Rash or Ulcers - old healed scars c/w acne, xanthoma left eye. Neurological: Alert and Oriented x 3, NL Muscle Strength and Tone Lines/Tubes/Other Access: Clean, Dry and Intact Peripheral IV Laboratory Results: 07/15/19 07:56 07/15/19 07:56 INR (Anticoag Therapy) 0.99 (0.82-1.09) 07/14/19 07:24 APTT 62.7 seconds (26.0-38.0) H 07/15/19 07:56 Total Bilirubin 0.70 mg/dL (0.2-1.0) 07/14/19 07:24 AST 12 U/L (13-39) L 07/14/19 07:24 ALT 11 U/L (7-52) 07/14/19 07:24 Alkaline Phosphatase 86 U/L (34-104) 07/14/19 07:24 Total Protein 7.4 g/dL (6.4-8.9) 07/14/19 07:24 Albumin 4.1 g/dL (3.2-5.2) 07/14/19 07:24 Globulin 3.3 g/dL (2-4) 07/14/19 07:24 Albumin/Globulin Ratio 1.2 (1-3) 07/14/19 07:24 Triglycerides 127 mg/dL 07/15/19 07:56 Cholesterol 176 mg/dL 07/15/19 07:56 LDL Cholesterol 105 mg/dL 07/15/19 07:56 HDL Cholesterol 45.9 mg/dL 07/15/19 07:56 TSH 1.29 mcIU/mL (0.34-5.60) 07/14/19 07:24 07/14/19 07/14/19 07/14/19 07:24 10:21 13:20 Troponin I 0.11 H* 0.21 H* 0.30 H* 07/14/19 07/14/19 07/14/19 16:14 20:40 23:52 Troponin I 0.30 H* 0.22 H* 0.33 H* 07/15/19 07:56 Troponin I 0.20 H* Diagnostic Imaging: *[facility]* [place] [address] Fax #: [phone] Transthoracic Echocardiogram Patient: Mynor Lobo [id number] : 1950 Study Date: 07/14/2019 Age: 68 Gender: M HR: 62 bpm Height: 68 in /172.7 cm BSA: 2.25 m^2 Weight: 249.5 lb /113.4 kg BMI: 38 kg/m^2 *Food And Beverage Operations Manager: Frieda Dempsey RDCS RN *Referring Physician: * Anisa VazquezReading Physician: * Brad Hodges MD Indications: Chest Pain, unspecified. History: Episode of A. Fib with RVR prior to admission. CAD. Prior [place] 08/2018 with 1 stent placed. Risk factors: Hypertension. Diabetes mellitus. Obese. Dyslipidemia. Conclusions Summary: - Left ventricle: The cavity size is mildly reduced. Wall thickness is moderately to severely increased. Systolic function is normal. The estimated ejection fraction is 55-60%. Wall motion is normal; there are no regional wall motion abnormalities. - Right ventricle: Systolic function is normal. - Mitral valve: There is trace regurgitation. - Aortic valve: There is no evidence of stenosis. - Tricuspid valve: There is trace regurgitation. - Pericardium, extracardiac: There is no significant pericardial effusion. - Pulmonary arteries: Systolic pressure can not be accurately estimated. - Study data: No prior study is available for comparison. This report is only to be considered final once signed by the Provider(s) as displayed in the "<Electronically Signed by >" field (s). Absence of a signature indicates the report is in a draft status and still needs to be finalized. In the event this document was created by someone other than the signing Provider, the individual initiating the document will be listed in the "Entered by:" or "Dictated by:" alonzo. Cath 08/06/18 [facility]: 100% occlusion LAD mid vessel, Cx and RCA mild luminal irregularities, EF 35-40% , LM 25% occlusion. Underwent 3.5 c 38 Synergy stent to LAD lesion. ECHO 12/01/18: [facility]: EF 55%, mild LVH. Assessment/Plan 68 yo male with CAD, single vessel s/p LAD stent last August, now presents with night time event of diaphoresis, SOB, chest discomfort and mild increase in troponins. Stress test in progress, 2 day protocol, await final results to determine cath vs MM. Differential of ischemia, CHF, TOBI, diabetic induced event such as hypoglyemia and type 2/demand ischemia, GERD and more. CAD risks of HTN, lipids, DM, obese. WRT CAD risks: BP not controlled here, consider changing metoprolol to carvedilol. -Nitrates an additional option, would recommend using at night if added due to presentation which could be CHF. DM: Recommend changing metformin to SGLT2 inhibitor due to CAD, CHF (diastolic). Probable TOBI. I could not tell from questioning the patient if he has been testing. I recommend overnight oxymetry here if not done in the past, formal outpatient sleep testing if desaturates.
[2019-07-16 06:43] LABS: BUN/Creatinine Ratio 25.3 (8-20); Calcium 8.6 mg/dL (8.6-10.3); EGFR African American 94.8 (>60); EGFR Non-African American 78.4 (>60); Potassium 3.7 mmol/L (3.5-5.0)
[2019-07-16] MEDS ORDERED: Potassium Chlor TAB* 20 MEQ TAB.ER PO ONE (07:29)
--- NOTE | 2019-07-16 07:29 | PN ---
Subjective Date of Service: 07/16/19 Interval History: HD 3 on 07/16 68 M with HTN, HLD, CAD(s/p stent), DM and GOut presented withacute onset of chest pain associated with shortness of breath and diaphoresis. Found to have A- fib with RVR( broke with metoprolol) and elevated troponin. pending 2nd phase stress test NO acute overnight events vitals stable; although hypertensive Patient denies chest pain and palpitation. Feels like needs more air. Oxygen saturation normal in room air. Completed stress test-intermediate risk; cardio consulted; OK to discharge added spironolactone- will have to f/u with PCP for BP Objective Active Medications: Acetaminophen (Tylenol Tab*) 650 mg PO Q6H PRN PRN Reason: MILD PAIN or TEMP > 100.4 Last Admin: 07/14/19 20:18 Dose: 650 mg Allopurinol (Zyloprim Tab*) 300 mg PO DAILY [facility] Last Admin: 07/15/19 09:46 Dose: 300 mg Amlodipine Besylate (Norvasc Tab*) 10 mg PO DAILY [facility] Last Admin: 07/15/19 09:46 Dose: 10 mg Apixaban (Eliquis*) 5 mg PO BID [facility] Aspirin (Aspirin Ec Tab*) 81 mg PO DAILY [facility] Last Admin: 07/15/19 09:46 Dose: 81 mg Atorvastatin Calcium (Lipitor*) 80 mg PO QPM [facility] Last Admin: 07/15/19 17:45 Dose: 80 mg Clonidine HCl (Catapres Tab*) 0.2 mg PO BID [facility] Last Admin: 07/15/19 21:12 Dose: 0.2 mg Clopidogrel Bisulfate (Plavix Tab*) 75 mg PO DAILY [facility] Last Admin: 07/15/19 09:46 Dose: 75 mg Hydrochlorothiazide (Hydrodiuril Tab*) 25 mg PO DAILY [facility] Last Admin: 07/15/19 09:47 Dose: 25 mg Losartan Potassium (Cozaar Tab*) 100 mg PO DAILY [facility] Last Admin: 07/15/19 12:28 Dose: 100 mg Metoprolol Succinate (Toprol Xl Tab*) 100 mg PO DAILY [facility] Pantoprazole Sodium (Protonix Tab*) 40 mg PO DAILY [facility] Last Admin: 07/15/19 09:47 Dose: 40 mg Tamsulosin HCl (Flomax Cap*) 0.4 mg PO DAILY [facility] Last Admin: 07/15/19 09:47 Dose: 0.4 mg Vital Signs - 8 hr 07/16/19 03:15 Temperature 98.1 F Pulse Rate 68 Respiratory 17 Rate Blood Pressure 147/73 (mmHg) O2 Sat by Pulse 93 Oximetry Oxygen Devices in Use Now: None Exam: Patient is lying comfortably in bed with no distress. HEENT: Normocephalic and atraumatic Lungs: clear with no added sounds Heart: S1/S2 heard with no murmur Abdomen: soft, and nontender. Normal BS heard Extremity: Mild edema Neuro: alert, oriented and coperative Result Diagrams: 07/15/19 07:56 07/16/19 05:44 Additional Lab and Data: Lab Results 07/14/19 07/14/19 07/14/19 Range/Units 07:24 07:24 07:24 WBC 12.2 H (3.5-10.8) 10^3/uL RBC 5.61 H (4.18-5.48) 10^6 /uL Hgb 17.3 (14.0-18.0) g/dL Hct 50 (42-52) % MCV 90 (80-94) fL MCH 31 (27-31) pg MCHC 34 (31-36) g/dL RDW 14 (10-15) % Plt Count 260 (150-450) 10^3/uL MPV 8.7 (7.4-10.4) fL Neut % (Auto) 82.7 % Lymph % (Auto) 11.2 % [place] % (Auto) 5.1 % Eos % (Auto) 0.5 % Baso % (Auto) 0.5 % Absolute Neuts (auto) 10.1 H (1.5-7.7) 10^3/ul Absolute Lymphs (auto) 1.4 (1.0-4.8) 10^3/ul Absolute Monos (auto) 0.6 (0-0.8) 10^3/ul Absolute Eos (auto) 0.1 (0-0.6) 10^3/ul Absolute Basos (auto) 0.1 (0-0.2) 10^3/ul Absolute Nucleated RBC 0.0 10^3/ul Nucleated RBC % 0.0 INR (Anticoag Therapy) (0.82-1.09) APTT (26.0-38.0) seconds Sodium 142 (135-145) mmol/L Potassium 4.2 (3.5-5.0) mmol/L Chloride 106 (101-111) mmol/L Carbon Dioxide 29 (22-32) mmol/L Anion Gap 7 (2-11) mmol/L BUN 20 (6-24) mg/dL Creatinine 0.88 (0.67-1.17) mg/dL Est GFR ( Amer) 103.6 (>60) Est GFR (Non-Af Amer) 85.6 (>60) BUN/Creatinine Ratio 22.7 H (8-20) Glucose 134 H (70-100) mg/dL Lactic Acid 1.5 (0.5-2.0) mmol/L Calcium 9.4 (8.6-10.3) mg/dL Magnesium 2.1 (1.9-2.7) mg/dL Total Bilirubin 0.70 (0.2-1.0) mg/dL AST 12 L (13-39) U/L ALT 11 (7-52) U/L Alkaline Phosphatase 86 (34-104) U/L Troponin I 0.11 H* (<0.03) ng/mL Total Protein 7.4 (6.4-8.9) g/dL Albumin 4.1 (3.2-5.2) g/dL Globulin 3.3 (2-4) g/dL Albumin/Globulin Ratio 1.2 (1-3) TSH 1.29 (0.34-5.60) mcIU/mL Thyroxine (T4) 9.41 (6.09-12.23) mcg/dL 07/14/19 Range/Units 07:24 WBC (3.5-10.8) 10^3/uL RBC (4.18-5.48) 10^6 /uL Hgb (14.0-18.0) g/dL Hct (42-52) % MCV (80-94) fL MCH (27-31) pg MCHC (31-36) g/dL RDW (10-15) % Plt Count (150-450) 10^3/uL MPV (7.4-10.4) fL Neut % (Auto) % Lymph % (Auto) % [place] % (Auto) % Eos % (Auto) % Baso % (Auto) % Absolute Neuts (auto) (1.5-7.7) 10^3/ul Absolute Lymphs (auto) (1.0-4.8) 10^3/ul Absolute Monos (auto) (0-0.8) 10^3/ul Absolute Eos (auto) (0-0.6) 10^3/ul Absolute Basos (auto) (0-0.2) 10^3/ul Absolute Nucleated RBC 10^3/ul Nucleated RBC % INR (Anticoag Therapy) 0.99 (0.82-1.09) APTT 32.7 (26.0-38.0) seconds Sodium (135-145) mmol/L Potassium (3.5-5.0) mmol/L Chloride (101-111) mmol/L Carbon Dioxide (22-32) mmol/L Anion Gap (2-11) mmol/L BUN (6-24) mg/dL Creatinine (0.67-1.17) mg/dL Est GFR ( Amer) (>60) Est GFR (Non-Af Amer) (>60) BUN/Creatinine Ratio (8-20) Glucose (70-100) mg/dL Lactic Acid (0.5-2.0) mmol/L Calcium (8.6-10.3) mg/dL Magnesium (1.9-2.7) mg/dL Total Bilirubin (0.2-1.0) mg/dL AST (13-39) U/L ALT (7-52) U/L Alkaline Phosphatase (34-104) U/L Troponin I (<0.03) ng/mL Total Protein (6.4-8.9) g/dL Albumin (3.2-5.2) g/dL Globulin (2-4) g/dL Albumin/Globulin Ratio (1-3) TSH (0.34-5.60) mcIU/mL Thyroxine (T4) (6.09-12.23) mcg/dL Assess/Plan/Problems-Billing Assessment: 68 M with HTN, HLD, CAD(s/p stent), DM and GOut presented withacute onset of chest pain associated with shortness of breath and diaphoresis. Found to have A- fib with RVR( broke with metoprolol) and elevated troponin. On anti-coagulation - Patient Problems (1) Chest pain Status: Acute Code(s): R07.9 - CHEST PAIN, UNSPECIFIED SNOMED Code(s): 69564018 Comment: -secondary to atrial fibrillation with RVR -controlled with metoprolol -Asymptomatic at present. Chest pain resolved after control of a-fib -EKg shows non-specific changes; now in sinus rhythm -trops elevated to 0.33; downtrended; likely demand from A-fib -stress test-internediate risk; cardio aware and okay to discharge -on plvix, metoprolol, amlodipine and statin-stopped aspirin -appreciate cardio input (2) Atrial fibrillation Status: Acute Code(s): I48.91 - UNSPECIFIED ATRIAL FIBRILLATION SNOMED Code( s): 04857691 Comment: -A-fib with RVR on presentation -broke with IV metoprolol by EMS -now normal sinus rhythm -continue metoprolol succinate -CHADs-VASC score is 4 which puts him as a high risk for thromboembolic risk -received lovenox therapeutic -eliquis 5 mg BID (3) Elevated troponin Status: Acute Code(s): R79.89 - OTHER SPECIFIED ABNORMAL FINDINGS OF BLOOD CHEMISTRY SNOMED Code(s): 730726641 Comment: -likely demand -downtrended (4) CAD (coronary artery disease) Status: Acute Code(s): I25.10 - ATHSCL HEART DISEASE OF [place] CORONARY ARTERY W/O ANG PCTRS SNOMED Code(s): 29211116 Comment: -s/p stent palcement in August 2018 -medically optimized -stopped aspirin. continue plavix and eliquis (5) Diabetes Status: Acute Code(s): E11.9 - TYPE 2 DIABETES MELLITUS WITHOUT COMPLICATIONS SNOMED Code(s): 41251343 Comment: -continue insulin lispro with ss -restart metformin at discharge (6) Hypertension Status: Acute Code(s): I10 - ESSENTIAL (PRIMARY) HYPERTENSION SNOMED Code(s) : 09047048 Comment: -BP higher side -continue home meds -added spironolactone- can f/u as an outpatient (7) Gout Status: Acute Code(s): M10.9 - GOUT, UNSPECIFIED SNOMED Code(s): 09527595 Comment: -Continue allopurinol (8) DVT prophylaxis Status: Acute Code(s): Z29.9 - ENCOUNTER FOR PROPHYLACTIC MEASURES, UNSPECIFIED SNOMED Code(s): 943887860 Comment: -therapeutic AC (9) Full code status Status: Acute Code(s): Z78.9 - OTHER SPECIFIED HEALTH STATUS SNOMED Code(s) : 546504668 Status and Disposition: Observation Dc to five point Attending: Evie Medrano Attestation Documenting Resident: Jamila Morel Supervising Physician: Evie Medrano Attending/Supervising Physician Comment: Agree with resident note and findings. Attending A/P: Mr Lobo is a 68 yo M who has a h/o CAD and HTN who presented to the ER with c/o chest pain after being found in rapid afib. He converted to NSR after metoprolol administration. He bumped his troponin and underwent stress test for evaluation of ischemic heart disease. Stress test revealed a small area of reversible change. Cardiology follow up recommends continuing plavix and eliquis (stop ASA) and follow up outpatient for further management of his CAD and afib. Spironolactone added for help in BP control. Follow up with outpatient gravel wheeler for further management. D/C back to long-term today. Attestation: This service has been performed in part by a resident under the direction of a teaching physician.I, Evei Medrano, performed the service, or was physically present during the critical, or otto portions of the service, furnished by the resident. I participated in the management of the patient.
[2019-07-16] MEDS: Pantoprazole TAB * 40 MG TAB PO SCH (08:24)
[2019-07-16] MEDS: Losartan TAB* 25 MG PO SCH (08:24)
[2019-07-16] MEDS: Tamsulosin CAP* 0.4 MG PO SCH (08:24)
[2019-07-16] MEDS: cloNIDine TAB* 0.1 MG PO SCH (08:24)
[2019-07-16] MEDS: Hydrochlorothiazide TAB* 25 MG PO SCH (08:24)
[2019-07-16] MEDS: Aspirin EC TAB* 81 MG TAB.EC PO SCH (08:24)
[2019-07-16] MEDS: Allopurinol TAB* 300 MG PO SCH (08:25)
[2019-07-16] MEDS: Clopidogrel TAB* 75 MG PO SCH (08:25)
[2019-07-16] MEDS: amLODIPine TAB* 5 MG PO SCH (08:25)
[2019-07-16] MEDS ORDERED: Metoprolol Succinate XL TAB* 100 MG PO SCH (09:00)
[2019-07-16] MEDS ORDERED: Apixaban* 5 MG TAB PO SCH (09:00)
[2019-07-16] MEDS ORDERED: Spironolactone TAB* 25 MG PO SCH (10:45)
--- NOTE | 2019-07-16 11:16 | DS ---
Resident Discharge Summary Discharge Summary: Date of Admission: 07/14/19 Date of Discharge: 07/16/2019 Admitting MD: Anisa Pompa MD Attending MD: Evie Medrano DO Primary Care Physician: Sherry Ascencio NP Allopurinol TAB* [Zyloprim 300 MG TAB*] 300 mg PO DAILY 06/02/19 [History Confirmed 07/14/19] Atorvastatin* [Lipitor 40 MG*] 80 mg PO QPM 06/02/19 [History Confirmed 07/14/19 ] Clopidogrel TAB* [Plavix TAB*] 75 mg PO DAILY 06/02/19 [History Confirmed ] Losartan TAB* [Cozaar TAB*] 100 mg PO DAILY 06/02/19 [History Confirmed 07/14/19 ] Omeprazole CAP (NF) [Prilosec CAP* 20 MG] 20 mg PO DAILY 06/02/19 [History Confirmed 07/14/19] Tamsulosin CAP* [Flomax CAP*] 0.4 mg PO DAILY 06/02/19 [History Confirmed ] Triamcinolone NASAL SPRAY* [Nasacort Aq Nasal [place]*] 2 spray BOTH NARES DAILY 06/02/19 [History Confirmed 07/14/19] metFORMIN* [Glucophage 500 MG TAB *] 500 mg PO DAILY 06/02/19 [History Confirmed 07/14/19] amLODIPine TAB* [Norvasc 5 mg TAB*] 10 mg PO DAILY 07/14/19 [History Confirmed 07/14/19] cloNIDine TAB* [Catapres 0.1 MG TAB*] 0.2 mg PO BID 07/14/19 [History Confirmed 07/14/19] Acetaminophen TAB* [Tylenol TAB*] 650 mg PO Q6H PRN tab 07/16/19 [Rx] Apixaban* [Eliquis*] 5 mg PO BID #0 tab 07/16/19 [Rx] Hydrochlorothiazide TAB* [Hydrodiuril TAB*] 25 mg PO DAILY tab 07/16/19 [Rx] Metoprolol Succinate XL TAB* [Toprol XL TAB*] 100 mg PO DAILY tab.xl 07/16/19 [ Rx] Spironolactone TAB* [Aldactone TAB 25 MG*] 25 mg PO DAILY tab 07/16/19 [Rx] Disposition: [facility] Condition: Stable Primary Diagnosis: 1. Atrial Fibrillation with RVR 2. Demand Ischemia Secondary Diagnosis: 1. Hypertension 2. Diabetes Mellitus 3. Gout 4. Coronary Artery Disease; s/p stent on 2019 [facility]. Nuclear Stress test: Intermediate risk. A small amount of reversible change in inferior wall near base of heart. 2. Chest X-ray: no active cardiopulmonary disease. 3. Transthoracic Echo: Ejection Fraction of 55-60%. Increased LV wall thickness. No regional wall motion abnormalities. No aortic stenosis and regurgitation. Pertinent Laboratory Results: Laboratory Last Values WBC 8.3 10^3/uL (3.5-10.8) 07/15/19 07:56 RBC 4.85 10^6 /uL (4.18-5.48) 07/15/19 07:56 Hgb 14.9 g/dL (14.0-18.0) 07/15/19 07:56 Hct 44 % (42-52) 07/15/19 07:56 MCV 90 fL (80-94) 07/15/19 07:56 MCH 31 pg (27-31) 07/15/19 07:56 MCHC 34 g/dL (31-36) 07/15/19 07:56 RDW 13 % (10-15) 07/15/19 07:56 Plt Count 201 10^3/uL (150-450) 07/15/19 07:56 MPV 8.4 fL (7.4-10.4) 07/15/19 07:56 Neut % (Auto) 74.4 % 07/15/19 07:56 Lymph % (Auto) 15.7 % 07/15/19 07:56 [place] % (Auto) 6.9 % 07/15/19 07:56 Eos % (Auto) 2.4 % 07/15/19 07:56 Baso % (Auto) 0.6 % 07/15/19 07:56 Absolute Neuts (auto) 6.2 10^3/ul (1.5-7.7) 07/15/19 07:56 Absolute Lymphs (auto) 1.3 10^3/ul (1.0-4.8) 07/15/19 07:56 Absolute Monos (auto) 0.6 10^3/ul (0-0.8) 07/15/19 07:56 Absolute Eos (auto) 0.2 10^3/ul (0-0.6) 07/15/19 07:56 Absolute Basos (auto) 0.0 10^3/ul (0-0.2) 07/15/19 07:56 Absolute Nucleated RBC 0.0 10^3/ul 07/15/19 07:56 Nucleated RBC % 0.0 07/15/19 07:56 INR (Anticoag Therapy) 0.99 (0.82-1.09) 07/14/19 07:24 APTT 62.7 seconds (26.0-38.0) H 07/15/19 07:56 Sodium 140 mmol/L (135-145) 07/16/19 05:44 Potassium 3.7 mmol/L (3.5-5.0) 07/16/19 05:44 Chloride 105 mmol/L (101-111) 07/16/19 05:44 Carbon Dioxide 29 mmol/L (22-32) 07/16/19 05:44 Anion Gap 6 mmol/L (2-11) 07/16/19 05:44 BUN 24 mg/dL (6-24) 07/16/19 05:44 Creatinine 0.95 mg/dL (0.67-1.17) 07/16/19 05:44 Est GFR ( Amer) 94.8 (>60) 07/16/19 05:44 Est GFR (Non-Af Amer) 78.4 (>60) 07/16/19 05:44 BUN/Creatinine Ratio 25.3 (8-20) H 07/16/19 05:44 Glucose 125 mg/dL (70-100) H 07/16/19 05:44 Lactic Acid 1.5 mmol/L (0.5-2.0) 07/14/19 07:24 Calcium 8.6 mg/dL (8.6-10.3) 07/16/19 05:44 Magnesium 2.0 mg/dL (1.9-2.7) 07/16/19 05:44 Total Bilirubin 0.70 mg/dL (0.2-1.0) 07/14/19 07:24 AST 12 U/L (13-39) L 07/14/19 07:24 ALT 11 U/L (7-52) 07/14/19 07:24 Alkaline Phosphatase 86 U/L (34-104) 07/14/19 07:24 Troponin I 0.20 ng/mL (<0.03) H* 07/15/19 07:56 Total Protein 7.4 g/dL (6.4-8.9) 07/14/19 07:24 Albumin 4.1 g/dL (3.2-5.2) 07/14/19 07:24 Globulin 3.3 g/dL (2-4) 07/14/19 07:24 Albumin/Globulin Ratio 1.2 (1-3) 07/14/19 07:24 Triglycerides 127 mg/dL 07/15/19 07:56 Cholesterol 176 mg/dL 07/15/19 07:56 LDL Cholesterol 105 mg/dL 07/15/19 07:56 HDL Cholesterol 45.9 mg/dL 07/15/19 07:56 TSH 1.29 mcIU/mL (0.34-5.60) 07/14/19 07:24 Thyroxine (T4) 9.41 mcg/dL (6.09-12.23) 07/14/19 07:24 Hospital Course: 68 M with Past medical history of CAD(s/p stent), HTN, Diabetes and Gout presented with chest pain, shortness of breath and diaphoresis. [facility]. He was found to have Atrial Fibrillation with RVR and was given Metoprolol. By the time he came to [facility] he was already in sinus rhythm. His hospital course by problem is as follows: 1. Atrial Fibrillation: He received Metoprolol and converted to sinus rhythm. Metoprolol was continued and he was monitored on telemetry with no repeat Atrial fibrillation. His CHADS-VASC score is 4 so he was started on eliquis and his aspirin was stopped. He will need to follow up with his marketing director assisted living for A- fib management and if requires addition of anti-arrhythmic. 2. Elevated Troponin: His troponin maxed to 0.33. Cardiology was consulted and they recommended stress test to rule out other cause of ischemia. His elevated troponin is most likely from demand ischemia. Stress test was intermediate risk and cardiology decided to manage it medically. 3. Hypertension: His BP was consistently high on hospital stay. He is already on more than 3 hypertensive medication. we have added spironolactone. He will need to follow up with his PCP for hypertension and repeat BMP in a week. HCTZ was started in place of lasix. ON the discharge, patient is ambulating, tolerating diet, voiding frequently and is asymptomatic. CONSULT during this hospitalization: Cardiology. Follow Up Instructions: In case of an emergency or after clinic hours, please go to your nearest Emergency Department. You may also call the [facility] cellophane bag machine operator at . ITEMS TO FOLLOWUP ON STATUS POST DISCHARGE: 1. Atrial Fibrillation: Follow up with marketing director assisted living or atrial fibrillation and if required addition of anti-arhythmic. He is started on eliquis. 2. CAD: To assess and to medically optimize him. His aspirin has been stopped as we started him on eliquis. 3. Hypertension: We have added spironolactone as his BP was high during this stay. He will need to get BMP done in a week and medication adjustment according to his BP. Attestation Documenting Resident: Jamila Morel Supervising Physician: Evie Medrano Attestation: This service has been performed in part by a resident under the direction of a teaching physician.I, Evie Medrano, performed the service, or was physically present during the critical, or otto portions of the service, furnished by the resident. I participated in the management of the patient.
[2019-07-16 11:43] VITALS: BP 164/80
--- NOTE | 2019-07-16 11:56 | PN ---
Subjective Date of Service: 07/16/19 Interval History: asymptomatic currently and sinus rhythm stress MPI reviewed mild inferior wall attenuation artifact, otherwise normal bp remains elevated Medications Active Medications: Acetaminophen (Tylenol Tab*) 650 mg PO Q6H PRN PRN Reason: MILD PAIN or TEMP > 100.4 Last Admin: 07/14/19 20:18 Dose: 650 mg Allopurinol (Zyloprim Tab*) 300 mg PO DAILY [facility] Last Admin: 07/16/19 08:25 Dose: 300 mg Amlodipine Besylate (Norvasc Tab*) 10 mg PO DAILY [facility] Last Admin: 07/16/19 08:25 Dose: 10 mg Apixaban (Eliquis*) 5 mg PO BID [facility] Last Admin: 07/16/19 08:25 Dose: 5 mg Aspirin (Aspirin Ec Tab*) 81 mg PO DAILY [facility] Last Admin: 07/16/19 08:24 Dose: 81 mg Atorvastatin Calcium (Lipitor*) 80 mg PO QPM [facility] Last Admin: 07/15/19 17:45 Dose: 80 mg Clonidine HCl (Catapres Tab*) 0.2 mg PO BID [facility] Last Admin: 07/16/19 08:24 Dose: 0.2 mg Clopidogrel Bisulfate (Plavix Tab*) 75 mg PO DAILY [facility] Last Admin: 07/16/19 08:25 Dose: 75 mg Hydrochlorothiazide (Hydrodiuril Tab*) 25 mg PO DAILY [facility] Last Admin: 07/16/19 08:24 Dose: 25 mg Losartan Potassium (Cozaar Tab*) 100 mg PO DAILY [facility] Last Admin: 07/16/19 08:24 Dose: 100 mg Metoprolol Succinate (Toprol Xl Tab*) 100 mg PO DAILY [facility] Last Admin: 07/16/19 08:25 Dose: 100 mg Pantoprazole Sodium (Protonix Tab*) 40 mg PO DAILY [facility] Last Admin: 07/16/19 08:24 Dose: 40 mg Tamsulosin HCl (Flomax Cap*) 0.4 mg PO DAILY [facility] Last Admin: 07/16/19 08:24 Dose: 0.4 mg Objective Vital Signs: Temp Pulse Resp BP Pulse Ox 98.0 F 71 22 164/80 96 07/16/19 11:43 07/16/19 11:43 07/16/19 11:43 07/16/19 11:43 07/16/19 11:43 Oxygen Devices in Use Now: None Appearance: nad, elderly Eyes: No Scleral Icterus, PERRLA Ears/Nose/Mouth/Throat: Clear Oropharnyx, Mucous Membranes Moist Neck: NL Appearance and Movements; NL JVP - thick neck. Respiratory: Symmetrical Chest Expansion and Respiratory Effort, Clear to Auscultation - distant from obesity. Cardiovascular: NL Sounds; No Murmurs; No JVD - distant c/w obesity., RRR Abdominal: - - soft, obese Extremities: No Clubbing, Cyanosis - trace edema, 1-2 + edema. Skin: No Rash or Ulcers - old healed scars c/w acne, xanthoma left eye. Neurological: Alert and Oriented x 3 Lines/Tubes/Other Access: Clean, Dry and Intact Peripheral IV Laboratory Results: 07/15/19 07:56 07/16/19 05:44 INR (Anticoag Therapy) 0.99 (0.82-1.09) 07/14/19 07:24 APTT 62.7 seconds (26.0-38.0) H 07/15/19 07:56 Total Bilirubin 0.70 mg/dL (0.2-1.0) 07/14/19 07:24 AST 12 U/L (13-39) L 07/14/19 07:24 ALT 11 U/L (7-52) 07/14/19 07:24 Alkaline Phosphatase 86 U/L (34-104) 07/14/19 07:24 Total Protein 7.4 g/dL (6.4-8.9) 07/14/19 07:24 Albumin 4.1 g/dL (3.2-5.2) 07/14/19 07:24 Globulin 3.3 g/dL (2-4) 07/14/19 07:24 Albumin/Globulin Ratio 1.2 (1-3) 07/14/19 07:24 Triglycerides 127 mg/dL 07/15/19 07:56 Cholesterol 176 mg/dL 07/15/19 07:56 LDL Cholesterol 105 mg/dL 07/15/19 07:56 HDL Cholesterol 45.9 mg/dL 07/15/19 07:56 TSH 1.29 mcIU/mL (0.34-5.60) 07/14/19 07:24 07/14/19 07/14/19 07/14/19 07:24 10:21 13:20 Troponin I 0.11 H* 0.21 H* 0.30 H* 07/14/19 07/14/19 07/14/19 16:14 20:40 23:52 Troponin I 0.30 H* 0.22 H* 0.33 H* 07/15/19 07:56 Troponin I 0.20 H* Diagnostic Imaging: Transthoracic Echocardiogram Pa Conclusions Summary: - Left ventricle: The cavity size is mildly reduced. Wall thickness is moderately to severely increased. Systolic function is normal. The estimated ejection fraction is 55-60%. Wall motion is normal; there are no regional wall motion abnormalities. - Right ventricle: Systolic function is normal. - Mitral valve: There is trace regurgitation. - Aortic valve: There is no evidence of stenosis. - Tricuspid valve: There is trace regurgitation. - Pericardium, extracardiac: There is no significant pericardial effusion. - Pulmonary arteries: Systolic pressure can not be accurately estimated. - Study data: No prior study is available for comparison. Cath 08/06/18 [facility]: 100% occlusion LAD mid vessel, Cx and RCA mild luminal irregularities, EF 35-40% , LM 25% occlusion. Underwent 3.5 c 38 Synergy stent to LAD lesion. ECHO 12/01/18: [facility]: EF 55%, mild LVH. Assessment/Plan 68 yo man with NC single vessel s/p PCI LAD August, admitted with high symptomatic paroxysmal atrial fibrillation and demand ischemia - Current meds reviewed. BP remains elevated add aldactone 25 mg po daily and needs BMP in 1 week - d/c aspirin and continue eliquis and plavix based on sonia trial ( ordered) - needs follow up with his regular oil and gas exploration technician Dr. Binh López for consideration of anti-arrhythmic medication. 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
== END 2019-07-16 15:30 ==
LOC: ED 06:03 → EEVIPCON 09:52 → MEDTELE 09:52
PROVIDERS: ADMIT Internal Medicine; ATTEND Hospitalist
DX: I48.20 Chronic atrial fibrillation, unspecified (principal); I24.8 Other forms of acute ischemic heart disease; I10 Essential (primary) hypertension; E11.9 Type 2 diabetes mellitus without complications; M10.9 Gout, unspecified; I25.10 Atherosclerotic heart disease of native coronary artery without angina pectoris; R79.89 Other specified abnormal findings of blood chemistry; R07.9 Chest pain, unspecified; I25.2 Old myocardial infarction; E78.00 Pure hypercholesterolemia, unspecified; E66.9 Obesity, unspecified; N40.0 Benign prostatic hyperplasia without lower urinary tract symptoms; E78.5 Hyperlipidemia, unspecified; K21.9 Gastro-esophageal reflux disease without esophagitis; Z79.84 Long term (current) use of oral hypoglycemic drugs; Z95.5 Presence of coronary angioplasty implant and graft; Z79.899 Other long term (current) drug therapy; Z79.01 Long term (current) use of anticoagulants; Z79.82 Long term (current) use of aspirin; Z87.891 Personal history of nicotine dependence
CPT/HCPCS: 36415; 71045; 71046; 78452; 80048; 80053; 80061; 82565; 83605; 83735; 84436; 84443; 84484; 85025; 85610; 85730; 93005; 93017; 93306; 96372; 99284; A9270-GY; A9502; C8929; G0378; J1644; J1650; J2785